=== PATIENT | female | born 1960 | race Caucasian/White ===

== ENCOUNTER 2024-01-21 09:25 | Inpatient (IN) | payer BC, SELFPAY ==
[2024-01-21] VITALS (23 sets, daily range): BP systolic 93–172; BP diastolic 45–79; PULSE 50–98; RESP 12–22; TEMP 36.7–37.2; O2SAT 91–98; BMI 27.4; BMI 171.4; BMI 26.9
--- NOTE | 2024-01-21 09:23 | ECG_ITS ---
APPROVED REPORT Exam: Resting ECG HR:67 bpm ECG Measurements Heart Rate 67 AXES MD 117 P 24 QRSd 90 QRS 77 QT 393 T [address] elevation FL that appears to be involving RCA proximally and potentially LAD with elevations in V3 through V6 as well as 2, 3, aVF. Reciprocal depressions in V2, 1, aVL Electronically signed by : ALANIS CAAL, 01/21/2024 13:34:39
--- NOTE | 2024-01-21 09:27 | IR_ITS ---
APPROVED REPORT Patient Location: Emergent PROCEDURES Selective coronary angiogram Mechanical thrombectomy to the dominant right coronary artery Drug-eluting stent deployment to the proximal mid and distal dominant right coronary in a contiguous manner INDICATION Acute inferior lateral ST elevation myocardial infarction, Coronary artery disease Informed consent was obtained prior to the procedure. COMPLICATIONS NONE Estimated Blood Loss: LESS THAN 10 ML TECHNIQUE One percent lidocaine used to anesthetize the right anterior aspect of the wrist. The right radial artery was accessed via the Seldinger technique. A 6 Citizen [place] sheath was placed in the right radial artery. 2.5 mg of Verapamil, 800 mcg of nitroglycerin, 1mg Lidocaine and 5000 U Heparin were given through the arterial sheath. The JL 3 guide catheter was used to perform selective coronary angiogram. Therapeutic heparin had already been administered therefore a Choice PT extra-support wire was placed distally into the occluded right coronary artery. Penumbra catheter was advanced and mechanical aspiration restored EHSAN-3 flow. Guide catheter was lost therefore a 6 [place] JR4 guide catheter was placed back in the right coronary followed by Choice PT extra-support wire. A 2.5 x 12 mm noncompliant balloon was deployed at 20 wei in the mid and proximal right coronary artery. Following this a 3.5 x 38 mm [place] frontier stent was placed in the mid right coronary artery and deployed at 16 wei. An additional 3.5 x 18 mm [place] frontier stent was then placed proximal to the for stent yet still overlapping and deployed at 24 wei. The balloon was advanced and deployed at 24 wei to mesh the stents and further post dilate the calcified area. There was haziness and a stepdown distally therefore an additional 3.5 x 22 mm [place] frontier stent was placed distal to the for stent yet still overlapping and deployed at 12 wei. The balloon was brought back and deployed at 20 and then 24 wei to further post dilate. EHSAN 0 flow was present at the beginning of the procedure with EHSAN-3 flow at the end of the procedure. Following this a 6 [place] JL 3 guide catheter was used to perform left coronary artery angiography. At the end the procedure the apparatus was removed the sheath was removed and hemostasis was achieved using TR banding patient was transferred to the postop putting in stable condition ANGIOGRAPHIC RESULTS The left main artery Normal The left anterior descending artery Has proximal calcified 20% stenosis followed by a concentric calcified 70% stenosis immediately distal to the first diagonal artery. There is additional 40 and tandem 50% calcified mid vessel stenoses. There is an additional 40 to 50% calcified stenosis at the proximal portion of the distal LAD The circumflex artery Is nondominant and has proximal eccentric calcified 70% stenosis followed by 50% stenosis The right coronary artery Is dominant and initially proximally occluded. Following revascularization there is wide patency of the proximal mid and distal segment within 3 contiguous drug-eluting stents. Distally there is excellent transitioning with wide patency of the PDA and posterolateral branch The LUND ventriculogram reveals Not performed The left ventricular end-diastolic pressure Not measured IMPRESSION Acute inferolateral ST elevation myocardial infarction involving the proximal dominant right coronary Successful mechanical thrombectomy of the proximal right coronary artery 100% occlusion reduced to 0% with 3 contiguous drug-eluting stents as described above Persistent severe and moderate disease in the mid LAD as described above Persistent severe stenosis in the proximal circumflex artery as described above PLAN 1. Brilinta 90 twice daily plus aspirin 81 mg daily 2. LDL less than 55 to achieve that high intensity statin 3. Add YULISA inhibitor's and beta-blockers as hemodynamically tolerated 4. Formal echocardiogram 5. A minimum of 48 hours of continuous telemetry and supportive care 6. Cardiac rehabilitation 7. Avoidance of tobacco products 8. Patient will be brought back to the [employer] 9 12 Tutor in 4 to 6 weeks and will undergo revascularization of the LAD and circumflex artery Electronically signed by : Alpesh Townsend MD 01/21/2024 10:40:30
--- NOTE | 2024-01-21 09:31 | ED_ITS ---
Discharge Plan Disposition Patient Disposition: Admitted Condition: Fair Prescriptions Prescriptions: No Action atorvastatin 20 mg tablet 20 mg PO HS Patient Comments: TAKE 1 TABLET BY MOUTH EVERY NIGHT lisinopril-hydrochlorothiazide 20-12.5 mg tablet 1 tab PO DAILY Patient Comments: TAKE 1 TABLET BY MOUTH EVERY MORNING amlodipine 2.5 mg tablet 2.5 mg PO DAILY Patient Comments: TAKE 1 TABLET BY MOUTH EVERY DAY Referrals Follow up/Referrals: Provider,Referral, [Primary Care Provider] - See instructions Clinical Impressions Clinical Impression: ST elevation DC (STEMI) Print Language Print Language: Fijian Discharge ED Provider: Darrin Luna General Chief Complaint: Chest Pain Stated Complaint: chest pain Time Seen by Provider: 01/21/24 09:27 History of Present Illness HPI narrative: Please note that above description of symptoms, in this electronic medical record under categorization of recalled from ER triage doctor by RN are reflective of an initial nursing assessment, however, is not reflective of my full history and physical exam that was personally taken and clarified. Consequentially, this preceding description of symptoms, which may include the patient's categorized chief complaint in the EMR, do not reflect my personal clinical impression, and the ultimate description of history of present illness and patient stated complaints should be deferred to this section of the note. Unless stated otherwise or congruent with this section of the note, additional signs, symptoms, or incongruence should be interpreted as inaccurate with my clinical impression. Related Data Home Medications ?Medication ?Instructions ?Recorded ?Confirmed amlodipine 2.5 mg tablet 2.5 mg PO DAILY 01/21/24 01/21/24 atorvastatin 20 mg tablet 20 mg PO HS 01/21/24 01/21/24 lisinopril 20 1 tab PO DAILY 01/21/24 01/21/24 mg-hydrochlorothiazide 12.5 mg tablet Allergies Allergy/AdvReac Type Severity Reaction Status Date / Time No Known Allergies Allergy Verified 01/21/24 09:30 [facility] Disclaimer: The information contained in this section may have been updated after the patient was seen, as this information can be updated by other users. Social History (Updated 01/21/24 @ 10:01 by Darrin Luna MD) Smoking Status: Unknown if ever smoked alcohol intake: never current occupational status: employed Travel in the last 8 weeks: None ROS Obtained: Yes All systems reviewed & no additional complaints except as documented Physical Exam General General appearance: alert and in distress (Mild distress secondary to pain) Neck Neck exam: Present trachea midline Chest Chest inspection: Present normal inspection and symmetric chest wall rise Respiratory Respiratory exam: Present normal lung sounds bilaterally; Absent respiratory distress, wheezes, stridor, accessory muscle use or prolonged expiratory phase Cardiovascular Cardiovascular exam: Present regular rate, normal rhythm and other (Pulses equal and symmetric in upper and lower extremities) Extremities Exam Extremities exam: Absent edema Neurological Exam Neurological exam: Present alert, oriented X3 and CN II-XII intact Skin Skin exam: Present warm and dry; Absent cyanosis, diaphoresis or pallor HEART Score HEART Score HEART Score assessment performed?: Yes HEART Score: 7 Critical Care Critical Care Time Critical Care Time: Yes (cards) Attestation: On 01/21/24, the high probability of a clinically significant, sudden or life threatening deterioration of the following system(s) required my full and direct attention, intervention and personal management. The time I documented below is in addition to time spent performing reported procedures but includes the following listed in this critical care notation. Total Time Total Critical Care Time: 45 Medical Decision Making Medical Records Medical records reviewed: Yes I reviewed the patient's medical records. Derek Inquiry Pt receiving controlled substance: No Derek was queried for this patient: No Vital Signs Vital Signs: 01/21/24 09:25 01/21/24 09:35 Temperature 98.0 F 98.0 F Temperature Source Oral Pulse Rate 69 Pulse Rate [Left Radial] 69 Respiratory Rate 12 14 Blood Pressure 172/71 H Blood Pressure [Right Arm] 172/71 H Blood Pressure Mean [Right Arm] 104 02 Sat by Pulse Oximetry 98 Oxygen Delivery Method Room Air Room Air Lab Data Labs: Lab Results 01/21/24 09:27: WBC 12.0 H, RBC 5.70 H, Hgb 16.9 H, Hct 52.3 H, MCV 91.8, MCH 29.6, MCHC 32.3, RDW 13.6, Plt Count 236, MPV 9.3, Neut % (Auto) 69.6, Lymph % (Auto) 23.8, Hart % (Auto) 4.2, Eos % (Auto) 1.9, Baso % (Auto) 0.5, Neut # (Auto) 8.4 H, Lymph # (Auto) 2.9, Hart # (Auto) 0.5, Eos # (Auto) 0.2, Baso # (Auto) 0.1, PT 10.3, INR 0.91, APTT 28.5 L, Sodium 139, Potassium 3.7, Chloride 103, Carbon Dioxide 29, Anion Gap 10.7, BUN 12, Creatinine 0.80, Estimated Creat Clear 65, Estimated GFR 73, Est GFR ( Amer) 88, Glucose 150 H, Calcium 10.1, Total Bilirubin 0.6, AST 31, ALT 19, Alkaline Phosphatase 89, Troponin I 0.06 H, NT-Pro-B Natriuret Pep 174 H, Total Protein 7.8, Albumin 4.6, Globulin 3.2, Albumin/Globulin Ratio 1.4, Triglycerides 118, Cholesterol 207 H, LDL Cholesterol Direct 112.12, VLDL Cholesterol 24, HDL Cholesterol 61 H, Cholesterol/HDL Ratio 3.4 01/21/24 09:27 01/21/24 09:27 Response Orders (Tests/Meds): ED MEDICATIONS Generic Name Dose Route Start Last Admin Trade Name Freq PRN Reason Stop Dose Admin Atropine Sulfate 0.5 mg 01/21/24 10:08 01/21/24 10:09 Atropine 1mg/10ml Syringe (Crash Cart) IV 01/21/24 10:09 1 mg ONCE ONE Administration Fentanyl Citrate 50 mcg 01/21/24 09:30 Fentanyl 100mcg/2ml Vial IV 01/21/24 21:30 Q3MINP PRN Sedation Fentanyl Citrate 25 mcg 01/21/24 09:30 Fentanyl 100mcg/2ml Vial IV 01/21/24 21:30 Q3MINP PRN Sedation Flumazenil 0.2 mg 01/21/24 09:30 Flumazenil 0.1mg/Ml 5ml Vial IV 01/21/24 21:30 NEEDED PRN Sedation Heparin Sodium (Porcine) 10,000 unit 01/21/24 09:30 01/21/24 09:44 Heparin 1,000 Units/Ml 10ml Vial (Psychiatric Registered Nurse) IV 01/21/24 13:30 2,000 unit NEEDED PRN Administration Emergency Box Dock Manager Hydralazine HCl 20 mg 01/21/24 09:30 Hydralazine 20mg/Ml Vial IV 01/21/24 13:30 ONCE PRN sbp>160 Sodium Chloride 1,000 mls @ 25 mls/hr 01/21/24 09:30 Sod Chlor 0.9% 1000ml Bag IV 02/20/24 09:29 .Q25H LUMA Adenosine 180 mg/ Sodium 90 mls @ 379.658 mls/hr 01/21/24 09:30 Chloride IV 01/21/24 13:30 ONCE PRN fractional flow reserve 180 MCG/KG/MIN Adenosine 90 mg/ Sodium 90 mls @ 759.316 mls/hr 01/21/24 09:30 Chloride IV 01/21/24 13:30 ONCE PRN fractional flow reserve 180 MCG/KG/MIN Sodium Chloride 1,000 mls @ 25 mls/hr 01/21/24 09:30 01/21/24 09:44 Sod Chloride 0.9% 500ml Bag IV 01/22/24 09:30 25 mls/hr .Q25H LUMA Administration Labetalol HCl 20 mg 01/21/24 09:30 Labetalol 20mg/4ml Syringe IV 01/21/24 13:30 ONCE PRN sbp>160 Midazolam HCl 1 mg 01/21/24 09:30 Midazolam 2mg/2ml Vial IV 01/21/24 21:30 Q3MINP PRN Sedation Midazolam HCl 1 mg 01/21/24 09:30 Midazolam Hcl 1mg/Ml 5ml Vial IV 01/21/24 21:30 Q3MINP PRN Sedation Miscellaneous 1 each 01/21/24 09:30 Heparin Drip Consult NOTAPPLIC 02/20/24 09:29 CONSULT PHARMACY [facility] Naloxone HCl 0.4 mg 01/21/24 09:30 Naloxone 0.4mg/Ml Vial IV 01/21/24 21:30 Q5MINP PRN Decreased Respirations Nitroglycerin 800 mcg 01/21/24 09:30 01/21/24 09:43 Nitroglycerin 800mcg/8ml Syr (Psychiatric Registered Nurse) IA 01/21/24 13:30 800 mcg NEEDED PRN Administration Emergency Box Dock Manager Protamine Sulfate 50 mg 01/21/24 09:30 Protamine Sulfate 50mg/5ml Vial (Psychiatric Registered Nurse) IV 01/21/24 13:30 ONCE PRN act>200 Sodium Chloride 10 ml 01/21/24 09:27 Sodium Chloride 0.9% 10ml Flush Syringe IV 02/20/24 09:26 NEEDED PRN Maintain IV Site Discontinued Medications Generic Name Dose Route Start Last Admin Trade Name Freq PRN Reason Stop Dose Admin Aspirin 324 mg 01/21/24 09:27 01/21/24 09:33 Aspirin 81mg Chewable Tablet PO 01/21/24 09:28 324 mg ONCE ONE Administration Clopidogrel Bisulfate 600 mg 01/21/24 09:27 01/21/24 09:57 Clopidogrel 300mg Tablet PO 01/21/24 09:28 Not Given ONCE ONE Diphenhydramine HCl 50 mg 01/21/24 09:30 01/21/24 09:45 Diphenhydramine 50mg/Ml Vial IV 01/21/24 09:31 50 mg ONCE ONE Administration Heparin Sodium (Porcine) 5,000 unit 01/21/24 09:27 01/21/24 09:33 Heparin Sodium 5,000 Unit/Ml Vial IV 01/21/24 09:28 5,000 unit ONCE ONE Administration Heparin Sodium/Sodium Chloride 3,000 unit 01/21/24 09:30 01/21/24 09:44 Heparin 1,000 Units/500ml Ns (Psychiatric Registered Nurse) IV 01/21/24 09:31 3,000 unit ONCE ONE Administration Lidocaine HCl 20 ml 01/21/24 09:30 01/21/24 09:44 Lidocaine 1% 10ml Mdv IJ 01/21/24 09:31 10 ml ONCE ONE Administration Lidocaine HCl 20 ml 01/21/24 09:30 Lidocaine 1% 5ml Pf Vial IJ 01/21/24 09:31 ONCE ONE Ondansetron HCl 4 mg 01/21/24 09:27 Ondansetron 4mg/2ml Vial IV 01/21/24 09:28 ONCE ONE Ticagrelor 180 mg 01/21/24 09:46 01/21/24 09:46 Ticagrelor 90mg Tablet PO 01/21/24 09:47 180 mg ONCE ONE Administration Verapamil HCl 2.5 mg 01/21/24 09:30 01/21/24 09:43 Verapamil 2.5mg/Ml 2ml Vial IV 01/21/24 09:31 2.5 mg ONCE ONE Administration ORDERS Category Date Time Status Consult to Cardiology [CONS] Stat Cons 01/21/24 09:27 Active XR chest portable Stat Exams 01/21/24 09:27 Ordered Complete Blood Count Auto Diff Stat Lab 01/21/24 09:27 Completed Comprehensive Metabolic Panel Stat Lab 01/21/24 09:27 Completed HIV (1&2) Antibody Rapid Stat Lab 01/21/24 09:27 Received Hep C Ab with Reflex to RNA Stat Lab 01/21/24 09: Received Lipid Panel Stat Lab 01/21/24 09:27 Completed NT Pro Brain Natriuretic Pep. Stat Lab 01/21/24 09:27 Completed PTT Heparin (inpatient only) Stat Lab 01/21/24 09:27 Completed Prothrombin Time INR Stat Lab 01/21/24 09:27 Completed Troponin I Q3H Lab 01/21/24 12:30 Ordered Troponin I Q3H Lab 01/21/24 15:30 Ordered Troponin I Stat Lab 01/21/24 09:27 Completed MDM Narrative Medical Decision Narrative: 63-year-old female history of hypertension presenting with chest pain. Chest pain started about 4 days prior to this, was on and off. Today, it has been constant, bothering her enough that she came in for further evaluation. Denies shortness of breath, nausea, vomiting, diaphoresis, syncope, or any other concerns. States that it is intermittently radiating to her back. History was obtained via conversation with patient. On arrival, patient hemodynamically stable, alert, oriented x4, appropriate, GCS 15, moving all extremities spontaneously, pupils equal and reactive to light. Full physical exam performed and significant for appears to be in mild distress secondary to pain. Cardiac exam without murmurs gallops or rubs. Pulses equal and symmetric in upper and lower extremities without delay. Lungs are clear to auscultation. Neurologically intact and ambulatory. Differential includes STEMI, dissection, pericarditis/myocarditis, among other Patient was given 324 mg aspirin, 600 mg Plavix, 5000 units heparin bolus, heparin drip ordered for symptomatic management and correction of underlying abnormalities. Patient placed on continuous cardiac monitoring and continuous pulse ox with initial blood pressure 172/71, heart rate 69, saturation 98% on room air. Independent interpretation of EKG shows ST elevations V3 through V6 as well as 2, 3, aVF with depressions and T wave inversions in V2, 1, aVL. Sinus rhythm 67 bpm. VA 170, QRS 90. Cardiology contacted and case was discussed, meds were administered, patient to be taken to Psychiatric Registered Nurse. Workup independently interpreted and significant for mild leukocytosis 12 with neutrophilia. Coags normal. Chemistry nonactionable. Hyperlipidemia on lipid panel. Chest x-ray ordered but pending. Troponin 0.06. Because patient high risk for clinical decompensation, deemed appropriate for inpatient admission. Results were relayed to patient who voiced understanding and patient was agreeable to inpatient admission and management. Patient was admitted to the hospital for further definitive management. Market Asset Protection Manager disclaimer Much of this encounter note is an electronic news broadcaster spoken language to printed text. Electronic news broadcaster of the spoken language may permit errors. Although I have reviewed the note, some errors may still exist.
[2024-01-21] MEDS: ASPIRIN 81MG CHEWABLE TABLET 324 MG PO (09:33)
[2024-01-21] MEDS: HEPARIN SODIUM 5,000 UNIT/ML VIAL 5000 UNIT IV (09:33)
--- NOTE | 2024-01-21 09:33 | PC.NURSE ---
pt to cardiac catheterization technician
[2024-01-21 09:37] LABS: Basophils # 0.1 K/mm3 (0-0.2); Basophils % 0.5 % (0.1-2.0); Eosinophils # 0.2 K/mm3 (0.0-0.4); Eosinophils % 1.9 % (0.1-12.0); Hematocrit 52.3 % (37.0-47.0); Hemoglobin 16.9 g/dL (12.2-16.2); Lymphocytes # 2.9 K/mm3 (0.7-4.5); Lymphocytes % 23.8 % (10-50); Mean Corpuscular HGB Conc 32.3 g/dL (31.8-35.4); Mean Corpuscular Hemoglobin 29.6 pg (27.0-31.2); Mean Corpuscular Volume 91.8 fl (81-99); Mean Platelet Volume 9.3 fl (7.4-10.4); Monocytes # 0.5 K/mm3 (0.1-1.0); Monocytes % 4.2 % (1.7-9.3); Neutrophils # 8.4 K/mm3 (1.8-7.8); Neutrophils % 69.6 % (37.0-80.0); Platelet Count 236 K/mm3 (142-424); Red Cell Distribution Width 13.6 % (11.5-17.5)
--- NOTE | 2024-01-21 09:40 | PC.NURSE ---
pt presented to ED with c/o chest pain. pt sat on stretcher, ekg stickers placed, ekg performed. upon EKG interpretation STEMI notified. STEMI ALERT 0925 zoll pads placed on pt, pt placed in gown, elyssa and wrist shaved, gown placed on pt, consent obtained. pt belongings placed in bag. maude cool at bedside gathering pts daughter information to inform pts daughter of POC.
[2024-01-21] MEDS: NITROGLYCERIN 800MCG/8ML SYR (CATH LAB) 800 MCG IA (09:43)
[2024-01-21] MEDS: VERAPAMIL 2.5MG/ML 2ML VIAL 2.5 MG IV (09:43)
[2024-01-21 09:44] LABS: Albumin Level 4.6 g/dl (3.5-5.0); Chloride 103 mmol/L (98-107)
[2024-01-21] MEDS: LIDOCAINE 1% 10ML MDV 20 ML IJ (09:44)
[2024-01-21] MEDS: HEPARIN 1,000 UNITS/500ML NS (CATH LAB) 3000 UNIT IV (09:44)
[2024-01-21] MEDS: 0.9 % SODIUM CHLORIDE 500 ML 25 ML IV (09:44)
[2024-01-21] MEDS: HEPARIN 1,000 UNITS/ML 10ML VIAL (CATH LAB) 10000 UNIT IV (09:44)
[2024-01-21 09:45] LABS: Potassium 3.7 mmoL/L (3.5-5.1); Sodium 139 mmol/L (136-145)
[2024-01-21] MEDS: diphenhydrAMINE 50MG/ML VIAL 50 MG IV (09:45)
[2024-01-21] MEDS: TICAGRELOR 90MG TABLET 180 MG PO (09:46)
--- NOTE | 2024-01-21 09:46 | HMH.PHAINT1 ---
Pharmacy Intervention Comments: MEDICATION RECONCILIATION COMPLETED ON PATIENT USING EXTERNAL FILL HISTORY FROM PHARMACY. -MICKIE HINES, DILMAD
[2024-01-21 09:47] LABS: Alanine Aminotransferase 19 U/L (12-78); Aspartate Amino Transferase 31 U/L (14-36); Blood Urea Nitrogen 12 mg/dl (7-17); Creatinine Clearance Estimated 65 mL/min (50-200); Estimated Glomerular Filt Rate 73 ml/min (>60); GFR (African American) 88 ML/MIN (>60)
[2024-01-21 09:48] LABS: Albumin/Globulin Ratio 1.4 (1.1-1.8); Alkaline Phosphatase 89 U/L (38-126); Anion Gap 10.7 mEq/L (5-15); Bilirubin,Total 0.6 mg/dl (0.2-1.3); Calcium 10.1 mg/dl (8.4-10.2); Carbon Dioxide 29 mmol/L (22.0-30.0); Chol/HDL Ratio 3.4 (1-3.5); Cholesterol 207 mg/dl (140-200); Globulin 3.2 g/dL (1.3-3.2); Glucose 150 mg/dl (74-100); HDL Cholesterol 61 mg/dl (40-60); INR 0.91 (0.9-1.1); Prothrombin Time 10.3 seconds (10.1-12.5); Total Protein,Serum 7.8 g/dl (6.3-8.2); Triglycerides 118 mg/dl (30-150); VLDL Cholesterol 24 mg/dL (0-40)
--- NOTE | 2024-01-21 09:55 | HMH.ITSTN ---
patient taken to laborer brush clearing prior to cxr being taken
[2024-01-21 09:59] LABS: Direct LDL Cholesterol 112.12 mg/dL (100-129); PTT Heparin (inpatient only) 28.5 Seconds (50-75)
[2024-01-21 10:00] LABS: NT Pro Brain Natriuretic Pep. 174 pg/mL (0-125)
[2024-01-21 10:02] LABS: Troponin I 0.06 ng/ml (0.00-0.034)
[2024-01-21] MEDS: ATROPINE 1MG/10ML SYRINGE (CRASH CART) 0.5 MG IV (10:09)
[2024-01-21] MEDS: MIDAZOLAM HCL 1MG/ML 5ML VIAL 1 MG IV (10:17)
[2024-01-21] MEDS: FENTANYL 100MCG/2ML VIAL 50 MCG IV (10:18)
[2024-01-21] MEDS: ONDANSETRON 4MG/2ML VIAL 4 MG IV (10:23)
[2024-01-21] MEDS: IOPAMIDOL-370 (76%);100ML BOTTLE 100 ML IV (10:52)
--- NOTE | 2024-01-21 11:23 | SUR.PHASEII ---
report given to car montoya
--- NOTE | 2024-01-21 12:14 | CA_ITS ---
APPROVED REPORT EXAM: Comprehensive 2D, Doppler, and color-flow Echocardiogram Fire Control Mechanic: Bonnie Hong CRT Ht: 5 ft 3 in Wt: 152lbs BSA: 1.72 BP: 125/71 mmHg Indications: Thrombectomy, stent, STEMI, HTN, HLD, SMOKER, SOB 2D Dimensions LA Volume 42.30 mL LA Volume Index 24.651180 mL/m2 (M/F) 16-34 M-Mode Dimensions RVDd 2.09 cm (0.9-2.6) LA Diam 3.53 cm (1.9-4.0) LVDd 4.15 cm (3.5-5.7) LVDs 2.97 cm (3.5-5.7) IVSd 1.09 cm (0.6-1.1) PWd 0.94 cm (0.6-1.1) EF (Teich) 55.20% FS 28.40% EDV (Teich) 76.40 mL TAPSE 2.30 (<1.7) ESV (Teich) 34.20 mL LV Diastology E Decel Time 173 (160-240 msec) E/A Ratio 0.86 MED A' 14.00 cm/s LAT A' 12.20 cm/s Aortic Valve KIMBERLY Index 1.10 cm2/m2 AoV Peak Kamlesh. 170.0 (50-130 cm/s) AI PHT 555.00 ms AO Peak GR. 11.60 mmHg AO Mean GR. 6.30 (<5 mmHg) AO VTI 30.9 (18-25 cm) KIMBERLY (VTI) 1.93 (2.5-4.5 cm2) Mitral Valve MV E Max Kamlesh. 91.0 (40-130 cm/s) MV A Velocity 106.0 (40-130 cm/s) E/A Ratio 0.86 MV PHT 51.0 ms Pulmonary Valve PV Peak Velocity 85.0 (50-150 cm/s) Tricuspid Valve TR P. Velocity 210.00 cm/s RAP Estimate 10.00 mmHg RVSP 27.70 mmHg Left Ventricle The left ventricle is normal size. The left ventricular systolic function is normal. The left ventricular ejection fraction is within the normal range. There is increased LV wall thickness. There is normal LV segmental wall motion. Transmitral Doppler flow pattern suggests impaired LV relaxation. LVEF is 60%. Right Ventricle Right ventricle is mild to moderately dilated. The right ventricular systolic function is normal. Atria Left atrium is moderately dilated. Right atrium is moderately dilated. There is no Doppler evidence of interatrial shunt. Aortic Valve The aortic valve is mildly thickened. There is no hemodynamically significant aortic stenosis. Trace aortic regurgitation. Mitral Valve The mitral valve is mildly thickened. No evidence of mitral valve stenosis. Trace mitral regurgitation. Tricuspid Valve The tricuspid valve leaflets are thin and pliable. Trace tricuspid regurgitation. RVSP is 20???25 mmHg. Pulmonic Valve The pulmonary valve is normal in structure. Trace pulmonic regurgitation. Great Vessels The aortic root is normal in size. The ascending aorta is not well-visualized. IVC is normal in size and collapses >50% with inspiration. Pericardium There is no pericardial effusion. Other Information Study Quality: Technically Difficult Conclusion Technically difficult study due to poor acoustic windows. Normal biventricular systolic function. Mild to moderate RV dilation. Biatrial dilation. No significant valvular stenosis or regurgitation. Electronically signed by : Sharron Allen MD 01/22/2024 11:59:45
--- NOTE | 2024-01-21 12:15 | XR_ITS ---
PROCEDURE INFORMATION: Exam: XR Chest Exam date and time: 01/21/2024 12:48 PM Age: 63 years old Clinical indication: Other: Copd, chf; Additional info: Chf, copd TECHNIQUE: Imaging protocol: Radiologic exam of the chest. Views: 1 view. COMPARISON: No relevant prior studies available. FINDINGS: Lungs: Lungs are well aerated without a focal area of consolidation. Pleural spaces: Unremarkable. No pleural effusion. No pneumothorax. Heart/Mediastinum: Unremarkable. No cardiomegaly. Bones/joints: Unremarkable. IMPRESSION: Lungs are well aerated without a focal area of consolidation.
--- NOTE | 2024-01-21 12:24 | P.CONCA_ITS ---
History of Present Illness History of Present Illness Consult date: 01/21/24 Requesting physician: Carlos Thomas Consult reason: chest pain Chief complaint: STEMI History of present illness: 63-year-old white female without known prior cardiovascular disease presented to the emergency room for complaint of chest pain. Patient states she had a mild gradual onset of left-sided chest heaviness which began Saturday and occurred intermittently over the next couple of days. This morning she woke up and felt the pain was getting worse and now radiating to her jaws. On arrival to the emergency room she was noted to have ST elevation inferior leads, code STEMI was called and patient was taken emergently to the [facility] where she had successful thrombectomy and stenting of her RCA. LAD and left circumflex both of 70% stenosis left for staged intervention at a later time. I am seeing patient on the floor post cath and she reports no symptoms and she is alert and feeling well. Family is bedside. [facility] Disclaimer: The information contained in this section may have been updated after the patient was seen, as this information can be updated by other users. Medical History (Updated 01/21/24 @ 12:26 by KEVEN Floyd) HLD (hyperlipidemia) Surgical History S/P cardiac cath H/O tubal ligation Social History Smoking Status: Current every day smoker alcohol intake: never current occupational status: employed Travel in the last 8 weeks: None Review of Systems Constitutional Constitutional: Denies fatigue and Denies weakness Eyes Eyes: Denies loss of vision ENT Ears, Nose, Mouth, and Throat: Denies hearing loss and Denies vertigo *Cardiovascular Cardiovascular: Denies chest pain, Denies dyspnea and Denies syncope *Respiratory Respiratory: Denies cough and Denies dyspnea *Gastrointestinal Gastrointestinal: Denies change in stool character, Denies nausea and Denies vomiting *Musculoskeletal Musculoskeletal: Denies muscle weakness Integumentary/Breasts Skin/Breast: Denies changing lesions *Neurologic Neurologic: Denies loss of vision, Denies syncope, Denies vertigo and Denies weakness Endocrine Endocrine: Denies fatigue Exam Data for Last 24 hours Vital signs and Labs for Last 24 Hours: Temp Pulse Resp BP Pulse Ox O2 Del Method 98.0 F 84 16 125/71 93 L Room Air 01/21/24 09:35 01/21/24 11:15 01/21/24 11:15 01/21/24 11:15 01/21/24 11:15 01/21/24 11:38 Laboratory Results - last 24 hr 01/21/24 09:27: WBC 12.0 H, RBC 5.70 H, Hgb 16.9 H, Hct 52.3 H, MCV 91.8, MCH 29.6, MCHC 32.3, RDW 13.6, Plt Count 236, MPV 9.3, Neut % (Auto) 69.6, Lymph % (Auto) 23.8, [place] % (Auto) 4.2, Eos % (Auto) 1.9, Baso % (Auto) 0.5, Neut # (Auto) 8.4 H, Lymph # (Auto) 2.9, [place] # (Auto) 0.5, Eos # (Auto) 0.2, Baso # (Auto) 0.1, PT 10.3, INR 0.91, APTT 28.5 L, Sodium 139, Potassium 3.7, Chloride 103, Carbon Dioxide 29, Anion Gap 10.7, BUN 12, Creatinine 0.80, Estimated Creat Clear 65, Estimated GFR 73, Est GFR ( Amer) 88, Glucose 150 H, Calcium 10.1, Total Bilirubin 0.6, AST 31, ALT 19, Alkaline Phosphatase 89, Troponin I 0.06 H, NT-Pro-B Natriuret Pep 174 H, Total Protein 7.8, Albumin 4.6, Globulin 3.2, Albumin/Globulin Ratio 1.4, Triglycerides 118, Cholesterol 207 H, LDL Cholesterol Direct 112.12, VLDL Cholesterol 24, HDL Cholesterol 61 H, Cholesterol/HDL Ratio 3.4 I & O for Last 24 hours: Intake & Output 01/18/24 01/19/24 01/20/24 01/21/24 23:59 23:59 23:59 23:59 Weight 152 lb Constitutional Constitutional: no acute distress and cooperative *Routine HEENT Exam Eye: Present PERRL *Routine Respiratory Exam Respiratory: Present CTA bilaterally; Absent accessory muscle use, wheezes or crackles *Routine Cardiovascular Exam Cardiovascular: Present RRR, Normal S1 and Normal S2; Absent murmur, gallop or rubs *Routine Abdominal Exam Abdominal: Present soft; Absent tenderness *Routine Extremities Exam Extremities: Present pulses intact; Absent cyanosis or edema *Routine Skin Exam Skin: Present intact; Absent erythema or wounds *Routine Neurological Exam Neurological: Present alert and oriented X3 Routine Psychiatric Exam Psychiatric: Present cooperative Meds Home Medications and Allergies Home Medications ?Medication ?Instructions ?Recorded ?Confirmed ?Type amlodipine 2.5 mg tablet 2.5 mg PO DAILY 01/21/24 01/21/24 History atorvastatin 20 mg tablet 20 mg PO HS 01/21/24 01/21/24 History lisinopril 20 1 tab PO DAILY 01/21/24 01/21/24 History mg-hydrochlorothiazide 12.5 mg tablet New Prescriptions to Start Prescriptions: Allergies Allergy/AdvReac Type Severity Reaction Status Date / Time No Known Allergies Allergy Verified 01/21/24 09:30 Assessment and Plan *Assessment and plan (1) STEMI (ST elevation myocardial infarction): Status: Acute Category: Medical Code(s): I21.3 - ST elevation (STEMI) myocardial infarction of unspecified site (2) CAD (coronary artery disease): Status: Acute Category: Medical Code(s): I25.10 - Atherosclerotic heart disease of [place] coronary artery without angina pectoris (3) Hypertension: Status: Acute Category: Medical Code(s): I10 - Essential (primary) hypertension Plan Multivessel CAD status post IW-STEMI - new dx this admission - [facility]: thrombectomy stenting of RCA, LAD/LCX 70% and will have staged intervention in approximately 2 weeks - pt will be started on DAPT, BB, Statin - 2D ECHO for LV function - 48 observation post STEMI Htn - stable currently - start BB, ARB HLD - check lipid panel - start high dose statin Tob - advise cessation
[2024-01-21] MEDS: IRBESARTAN 75MG TABLET 75 MG PO (14:09)
[2024-01-21] MEDS: METOPROLOL SUCCINATE XL 25MG TABLET 25 MG PO (14:09)
[2024-01-21 14:33] LABS: CATHL Activated Clotting Time 272 SEC (74-125)
[2024-01-21 14:35] LABS: CATHL Activated Clotting Time 296 SEC (74-125)
--- NOTE | 2024-01-21 16:27 | PC.NURSE ---
1627- 12 beat run of v tach on monitor. Patient asymptomatic, vs stable. Hospitalist aware, ordered potassium po and check magnesium level. Cardiology aware, no new orders.
[2024-01-21 16:35] LABS: HIV (1&2) Antibody Rapid NONREACTIVE (NONREACTIVE)
[2024-01-21] MEDS: POTASSIUM CHLORIDE 20MEQ TAB 40 MEQ PO (16:47)
[2024-01-21 16:57] LABS: Magnesium 1.7 mg/dl (1.6-2.3)
[2024-01-21] MEDS: MAGNESIUM SULFATE IN WATER 2 GM/50 ML PIGGYBACK IV ×2 (17:53→18:51)
--- NOTE | 2024-01-21 18:19 | P.HP_ITS ---
History of Present Illness *Admission Date: 01/21/24 *Reason for visit:: Chest pain, STEMI *History of present illness: Ilana Allen is a 63-year-old female with a medical history significant for chronic tobacco use, hypertension who presented with worsening chest pain and found to have a STEMI. Patient states she had a mild gradual onset of left- sided chest heaviness which began Saturday and occurred intermittently over the next couple of days. This morning she woke up and felt the pain was getting worse with radiation to her jaws. On arrival to the emergency room she was noted to have ST elevation inferior leads, code STEMI was called and patient was taken emergently to the [facility] where she had successful thrombectomy and stenting of her RCA. LAD and left circumflex both of 70% stenosis left for staged intervention at a later time. Upon my arrival postcatheterization, lita johns was lying in bed comfortably this afternoon without chest pain, shortness of breath. She states she is open to quitting smoking, but will think about it more. Open to nicotine patches. [facility] Disclaimer: The information contained in this section may have been updated after the patient was seen, as this information can be updated by other users. Medical History (Updated 01/21/24 @ 12:26 by KEVEN Floyd) HLD (hyperlipidemia) Surgical History S/P cardiac cath H/O tubal ligation Social History Smoking Status: Current every day smoker alcohol intake: never current occupational status: employed Travel in the last 8 weeks: None Other Medical History Have you received the Flu Vaccine for this season: No Have you received the Pneumonia Vaccine: No Review of Systems Constitutional Constitutional: Denies weakness Eyes Eyes: Denies loss of vision ENT Ears, Nose, Mouth, and Throat: Denies vertigo *Cardiovascular Cardiovascular: Denies syncope *Neurologic Neurologic: Denies loss of vision, Denies syncope, Denies vertigo and Denies weakness Meds Home Medications and Allergies Home Medications ?Medication ?Instructions ?Recorded ?Confirmed ?Type amlodipine 2.5 mg tablet 2.5 mg PO DAILY 01/21/24 01/21/24 History atorvastatin 20 mg tablet 20 mg PO HS 01/21/24 01/21/24 History lisinopril 20 1 tab PO DAILY 01/21/24 01/21/24 History mg-hydrochlorothiazide 12.5 mg tablet New Prescriptions to Start Prescriptions: Allergies Allergy/AdvReac Type Severity Reaction Status Date / Time No Known Allergies Allergy Verified 01/21/24 09:30 Exam Data for Last 24 hours Vital signs and Labs for Last 24 Hours: Temp Pulse Resp BP Pulse Ox O2 Del Method 98.0 F 71 18 143/63 H 95 Room Air 01/21/24 09:35 01/21/24 16:45 01/21/24 16:45 01/21/24 16:45 01/21/24 16:45 01/21/24 17:00 Laboratory Results - last 24 hr 01/21/24 09:27: WBC 12.0 H, RBC 5.70 H, Hgb 16.9 H, Hct 52.3 H, MCV 91.8, MCH 29.6, MCHC 32.3, RDW 13.6, Plt Count 236, MPV 9.3, Neut % (Auto) 69.6, Lymph % (Auto) 23.8, [place] % (Auto) 4.2, Eos % (Auto) 1.9, Baso % (Auto) 0.5, Neut # (Auto) 8.4 H, Lymph # (Auto) 2.9, [place] # (Auto) 0.5, Eos # (Auto) 0.2, Baso # ( Auto) 0.1, PT 10.3, INR 0.91, APTT 28.5 L, Sodium 139, Potassium 3.7, Chloride 103, Carbon Dioxide 29, Anion Gap 10.7, BUN 12, Creatinine 0.80, Estimated Creat Clear 65, Estimated GFR 73, Est GFR ( Amer) 88, Glucose 150 H, Calcium 10.1, Magnesium 1.7, Total Bilirubin 0.6, AST 31, ALT 19, Alkaline Phosphatase 89, Troponin I 0.06 H, NT-Pro-B Natriuret Pep 174 H, Total Protein 7.8, Albumin 4.6, Globulin 3.2, Albumin/Globulin Ratio 1.4, Triglycerides 118, Cholesterol 207 H, LDL Cholesterol Direct 112.12, VLDL Cholesterol 24, HDL Cholesterol 61 H, Cholesterol/HDL Ratio 3.4, HIV 1&2 Antibody Rapid Nonreactive 01/21/24 09:32: Activated Clotting Time 296 H* 01/21/24 10:04: Activated Clotting Time 272 H* I & O for Last 24 hours: Intake & Output 01/18/24 01/19/24 01/20/24 01/21/24 23:59 23:59 23:59 23:59 Output Total 0 / 0 Balance 0 / 0 Weight 68.946 kg Constitutional Constitutional: no acute distress *Routine HEENT Exam Head: Present normocephalic Eye: Present EOMI and PERRL ENT: Present mucous membranes moist *Routine Neck Exam Neck: Present supple; Absent lymphadenopathy *Routine Respiratory Exam Respiratory: Present CTA bilaterally *Routine Cardiovascular Exam Cardiovascular: Present RRR *Routine Abdominal Exam Abdominal: Present soft and normoactive bowel sounds; Absent tenderness *Routine Rectal Exam Rectal:: deferred *Routine Genitalia Exam Genitalia:: deferred *Routine Extremities Exam Extremities: Absent cyanosis, clubbing or edema *Routine Skin Exam Skin: Present warm; Absent rash *Routine Neurological Exam Neurological: Present alert and oriented X3 Assessment and Plan *Assessment and plan (1) CAD (coronary artery disease): Status: Acute Category: Medical Code(s): I25.10 - Atherosclerotic heart disease of [place] coronary artery without angina pectoris (2) STEMI (ST elevation myocardial infarction): Status: Acute Category: Medical Code(s): I21.3 - ST elevation (STEMI) myocardial infarction of unspecified site (3) Hypertension: Status: Acute Category: Medical Code(s): I10 - Essential (primary) hypertension (4) HLD (hyperlipidemia): Status: Acute Category: Medical Code(s): E78.5 - Hyperlipidemia, unspecified Plan Ilana Allen is a 63-year-old female with a medical history significant for chronic tobacco use, hypertension who presented with worsening chest pain and found to have a STEMI. Patient states she had a mild gradual onset of left- sided chest heaviness which began Saturday and occurred intermittently over the next couple of days. This morning she woke up and felt the pain was getting worse with radiation to her jaws. On arrival to the emergency room she was noted to have ST elevation inferior leads, code STEMI was called and patient was taken emergently to the [facility] where she had successful thrombectomy and stenting of her RCA. LAD and left circumflex both of 70% stenosis left for staged intervention at a later time. Upon my arrival postcatheterization, patient was lying in bed comfortably this afternoon without chest pain, shortness of breath. She states she is open to quitting smoking, but will think about it more. Open to nicotine patches. Will require 48 hours observation and cardiac telemetry post PCI for STEMI. #STEMI #CAD #Hypertension ? S/p thrombectomy of proximal RCA with 3 RADHA. Persistent severe to moderate disease of mid LAD. ? Cardiology consulted, started aspirin 81 mg and Brilinta 90 mg twice a day, atorvastatin 80 mg, metoprolol succinate 25 mg, irbesartan 75 mg. ? Will need to monitor for 48 hours after STEMI s/p PCI with stents. ? Continuous cardiac telemetry. ? Follow-up lipid panel, A1c, TSH, T4. ? Follow-up ECHO. #Nonsustained V. tach ? Observed on telemetry, about 12 beats. ? Will replete potassium, magnesium as they are respectively 3.7, 1.7. ? Followed up with cardiology, likely due to reperfusion of RCA. ? Continue to monitor on cardiac telemetry. ? Follow-up thyroid studies. ? K >4, magnesium >2. #Leukocytosis ? WBC 12.0. Likely reactive in the setting of STEMI. ? Afebrile, no tachycardia. No signs of infection. ? Continue to monitor. #Tobacco use disorder ? Counseled on smoking cessation. Patient will think about it. Open to nicotine patch. ? Nicotine patch daily. Full code DVT prophylaxis: Lovenox 40 Cardiac diet
[2024-01-21] MEDS: ATORVASTATIN 40MG TABLET 80 MG PO (19:59)
[2024-01-22] VITALS (8 sets, daily range): BP systolic 97–138; BP diastolic 46–66; PULSE 50–79; RESP 16–22; TEMP 36.4–37; O2SAT 91–96; BMI 27.1
[2024-01-22 06:58] LABS: Basophils # 0.1 K/mm3 (0-0.2); Basophils % 0.7 % (0.1-2.0); Chloride 106 mmol/L (98-107); Eosinophils # 0.2 K/mm3 (0.0-0.4); Eosinophils % 1.2 % (0.1-12.0); Hematocrit 45.5 % (37.0-47.0); Lymphocytes # 3.1 K/mm3 (0.7-4.5); Lymphocytes % 24.6 % (10-50); Mean Corpuscular HGB Conc 32.8 g/dL (31.8-35.4); Mean Corpuscular Hemoglobin 28.8 pg (27.0-31.2); Mean Corpuscular Volume 87.7 fl (81-99); Mean Platelet Volume 10.1 fl (7.4-10.4); Monocytes # 0.7 K/mm3 (0.1-1.0); Monocytes % 5.3 % (1.7-9.3); Neutrophils # 8.7 K/mm3 (1.8-7.8); Neutrophils % 68.2 % (37.0-80.0); Platelet Count 197 K/mm3 (142-424); Red Blood Count 5.18 M/mm3 (4.20-5.40); Red Cell Distribution Width 13.8 % (11.5-17.5); White Blood Count 12.8 K/mm3 (4.8-10.8)
[2024-01-22 06:59] LABS: Albumin Level 3.8 g/dl (3.5-5.0); Potassium 3.9 mmoL/L (3.5-5.1); Sodium 138 mmol/L (136-145)
[2024-01-22 07:01] LABS: Blood Urea Nitrogen 12 mg/dl (7-17); Creatinine Clearance Estimated 64 mL/min (50-200); Estimated Glomerular Filt Rate 63 ml/min (>60); GFR (African American) 77 ML/MIN (>60)
[2024-01-22 07:02] LABS: Alanine Aminotransferase 18 U/L (12-78); Albumin/Globulin Ratio 1.5 (1.1-1.8); Alkaline Phosphatase 70 U/L (38-126); Anion Gap 9.9 mEq/L (5-15); Aspartate Amino Transferase 70 U/L (14-36); Bilirubin,Total 0.5 mg/dl (0.2-1.3); Calcium 8.9 mg/dl (8.4-10.2); Carbon Dioxide 26 mmol/L (22.0-30.0); Globulin 2.6 g/dL (1.3-3.2); Glucose 110 mg/dl (74-100); Total Protein,Serum 6.4 g/dl (6.3-8.2)
[2024-01-22 07:10] LABS: Hemoglobin 14.9 g/dL (12.2-16.2)
--- NOTE | 2024-01-22 07:34 | XR_ITS ---
PROCEDURE INFORMATION: Exam: XR Chest Exam date and time: 01/22/2024 7:45 AM Age: 63 years old Clinical indication: Pain; Chest pressure; Additional info: Persistent leukocytosis TECHNIQUE: Imaging protocol: Radiologic exam of the chest. Views: 1 view. COMPARISON: CR XR CHEST PORTABLE 01/21/2024 12:48 PM FINDINGS: Tubes, catheters and devices: Monitor leads project over the chest. Lungs: No significant or acute findings. No consolidation. Pleural spaces: No significant costophrenic angle blunting. No pneumothorax. Heart/Mediastinum: Heart size is normal. Bones/joints: No acute osseous abnormality. IMPRESSION: No acute abnormality demonstrated.
[2024-01-22 07:38] LABS: Magnesium 2.3 mg/dl (1.6-2.3)
[2024-01-22 08:10] LABS: Thyroid Stimulating Hormone 2.58 uIU/mL (0.465-4.68)
[2024-01-22] MEDS: ASPIRIN EC 81MG TABLET 81 MG PO (08:21)
[2024-01-22] MEDS: NICOTINE 21MG/24HR PATCH 21 MG TD (08:22)
[2024-01-22 08:25] LABS: HCV Ab Non Reactive (Non Reactive)
[2024-01-22] MEDS: TICAGRELOR 90MG TABLET 90 MG PO ×2 (10:09→20:39)
[2024-01-22] MEDS: METOPROLOL SUCCINATE XL 25MG TABLET 25 MG PO (10:46)
--- NOTE | 2024-01-22 10:47 | ECG_ITS ---
APPROVED REPORT Exam: Resting ECG HR:53 bpm ECG Measurements Heart Rate 53 AXES AL 128 P 26 QRSd 90 QRS -23 QT 455 T -29 QTc 438 Conclusion SINUS BRADYCARDIA INFERIOR MYOCARDIAL INFARCTION , PROBABLY RECENT [40+ ms Q WAVE AND/OR ST/T ABNORMALITY IN II/aVF] ACUTE NC UNCONFIRMED REPORT Electronically signed by : Anthony Barcenas MD 01/24/2024 09:05:06
[2024-01-22 11:29] LABS: Microscopic, Urine URINE MICROSCOPIC (MICROSCOPIC)
[2024-01-22 11:49] LABS: Free T4 (Free Thyroxine) 0.88 ng/dl (0.78-2.19)
[2024-01-22 12:42] LABS: Appearance,Urine CLEAR (Clear); Bilirubin,Urine Negative (Negative); Blood, Urine Negative (Negative); Color,Urine YELLOW (Yellow); Glucose,Urine (UA) Negative (Negative); Ketones,Urine Negative (Negative); Leukocyte Esterase,Urine Negative (Negative); Nitrate,Urine Negative (Negative); Protein,Urine Negative (Negative); Urobilinogen,Urine 0.2 EU/dl (0.2)
[2024-01-22 12:55] LABS: Bacteria,Urine Trace /lpf; Squamous Epithelial Cell,Urine Occasional #/hpf (0-5)
--- NOTE | 2024-01-22 13:08 | P.PN_ITS ---
Subjective Subjective Date: 01/22/24 Time: 09:30 Interval history: Several brief runs of VT yesterday afternoon (12-13 beats). No events overnight but did require some nocturnal O2. Exam Data for Last 24 hours Vital signs and Labs for Last 24 Hours: Temp Pulse Resp BP Pulse Ox O2 Del Method O2 Flow Rate 98.6 F 52 L 17 111/50 L 91 L Room Air 2 01/22/24 12:00 01/22/24 12:00 01/22/24 12:00 01/22/24 12:00 01/22/24 12:00 01/22/24 12:53 01/22/24 06:00 Laboratory Results - last 24 hr 01/21/24 09:27: Magnesium 1.7, Hepatitis C Antibody Non reactive, HIV 1&2 Antibody Rapid Nonreactive 01/21/24 09:32: Activated Clotting Time 296 H* 01/21/24 10:04: Activated Clotting Time 272 H* 01/22/24 05:35: WBC 12.8 H, RBC 5.18, Hgb 14.9 D, Hct 45.5, MCV 87.7, MCH 28.8, MCHC 32.8, RDW 13.8, Plt Count 197, MPV 10.1, Neut % (Auto) 68.2, Lymph % (Auto) 24.6, [place] % (Auto) 5.3, Eos % (Auto) 1.2, Baso % (Auto) 0.7, Neut # (Auto) 8.7 H, Lymph # (Auto) 3.1, [place] # (Auto) 0.7, Eos # (Auto) 0.2, Baso # (Auto) 0.1, Sodium 138, Potassium 3.9, Chloride 106, Carbon Dioxide 26, Anion Gap 9.9, BUN 12, Creatinine 0.90, Estimated Creat Clear 64, Estimated GFR 63, Est GFR ( Amer) 77, Glucose 110 H D, Hemoglobin A1c 6.0, Calcium 8.9, Magnesium 2.3 D, Total Bilirubin 0.5, AST 70 H D, ALT 18, Alkaline Phosphatase 70, Total Protein 6.4, Albumin 3.8 D, Globulin 2.6, Albumin/Globulin Ratio 1.5, Procalcitonin 0.040, TSH 2.58, Free T4 0.88 01/22/24 11:20: Urine Color Yellow, Urine Appearance Clear, Urine pH 6.0, Ur Specific [place] 1.010, Urine Protein Negative, Urine Glucose (UA) Negative, Urine Ketones Negative, Urine Blood Negative, Urine Nitrate Negative, Urine Bilirubin Negative, Urine Urobilinogen 0.2, Ur Leukocyte Esterase Negative, Urine RBC None, Urine WBC None, Ur Squamous Epith Cells Occasional, Urine Bacteria Trace I & O for Last 24 hours: Intake & Output 01/19/24 01/20/24 01/21/24 01/22/24 23:59 23:59 23:59 23:59 Intake Total 360 / 960 600 / 600 Output Total 0 / 0 0 / 0 Balance 360 / 960 600 / 600 Weight 152 lb 153 lb Constitutional Constitutional: no acute distress and cooperative *Routine HEENT Exam Eye: Present PERRL *Routine Respiratory Exam Respiratory: Present CTA bilaterally; Absent accessory muscle use, wheezes or crackles *Routine Cardiovascular Exam Cardiovascular: Present RRR, Normal S1 and Normal S2; Absent murmur, gallop or rubs *Routine Abdominal Exam Abdominal: Present soft; Absent tenderness *Routine Extremities Exam Extremities: Present pulses intact; Absent cyanosis or edema *Routine Skin Exam Skin: Present intact; Absent erythema or wounds *Routine Neurological Exam Neurological: Present alert and oriented X3 Routine Psychiatric Exam Psychiatric: Present cooperative Progress Note: A&P Assessment and plan (1) CAD (coronary artery disease): Status: Acute (2) STEMI (ST elevation myocardial infarction): Status: Acute (3) Hypertension: Status: Acute (4) HLD (hyperlipidemia): Status: Acute Assessment and Plan Assessment and Plan for All Diagnoses:: Multivessel CAD status post IW-STEMI - new dx this admission - [facility]: thrombectomy stenting of RCA, LAD/LCX 70% and will have staged interven tion in approximately 2 weeks - Cont DAPT, BB, Statin - ECHO shows normal Bi-V function - 48 observation post STEMI NSVT - cont beta blockers - may place 2 week monitor at discharge Asymptomatic Sinus Jacques - pt states she has had HR in 50s throughout her life - reduces to 40s some at night in setting of hypoxia - needs sleep study Nocturnal Hypoxia - recommend sleep study Htn - stable currently - start BB, ARB HLD - check lipid panel - start high dose statin Tob - advise cessation CV stable, likely home tomorrow afternoon.
--- NOTE | 2024-01-22 16:03 | P.PN_ITS ---
Subjective *Date: 01/22/24 *Time: 16:03 Interval history: Today, patient states she is doing well without chest pain, shortness of breath. No events on telemetry. Anticipate discharge tomorrow if stable. Exam Data for Last 24 hours Vital signs and Labs for Last 24 Hours: Temp Pulse Resp BP Pulse Ox O2 Del Method O2 Flow Rate 98.6 F 52 L 17 111/50 L 91 L Room Air 2 01/22/24 12:00 01/22/24 12:00 01/22/24 12:00 01/22/24 12:00 01/22/24 12:00 01/22/24 12:53 01/22/24 06:00 Laboratory Results - last 24 hr 01/21/24 09:27: Magnesium 1.7, Hepatitis C Antibody Non reactive, HIV 1&2 Antibody Rapid Nonreactive 01/22/24 05:35: WBC 12.8 H, RBC 5.18, Hgb 14.9 D, Hct 45.5, MCV 87.7, MCH 28.8, MCHC 32.8, RDW 13.8, Plt Count 197, MPV 10.1, Neut % (Auto) 68.2, Lymph % (Auto) 24.6, [place] % (Auto) 5.3, Eos % (Auto) 1.2, Baso % (Auto) 0.7, Neut # (Auto) 8.7 H, Lymph # (Auto) 3.1, [place] # (Auto) 0.7, Eos # (Auto) 0.2, Baso # (Auto) 0.1, Sodium 138, Potassium 3.9, Chloride 106, Carbon Dioxide 26, Anion Gap 9.9, BUN 12, Creatinine 0.90, Estimated Creat Clear 64, Estimated GFR 63, Est GFR ( Amer) 77, Glucose 110 H D, Hemoglobin A1c 6.0, Calcium 8.9, Magnesium 2.3 D, Total Bilirubin 0.5, AST 70 H D, ALT 18, Alkaline Phosphatase 70, Total Protein 6.4, Albumin 3.8 D, Globulin 2.6, Albumin/Globulin Ratio 1.5, Procalcitonin 0.040, TSH 2.58, Free T4 0.88 01/22/24 11:20: Urine Color Yellow, Urine Appearance Clear, Urine pH 6.0, Ur Specific [place] 1.010, Urine Protein Negative, Urine Glucose (UA) Negative, Urine Ketones Negative, Urine Blood Negative, Urine Nitrate Negative, Urine Bilirubin Negative, Urine Urobilinogen 0.2, Ur Leukocyte Esterase Negative, Urine RBC None, Urine WBC None, Ur Squamous Epith Cells Occasional, Urine Bacteria Trace I & O for Last 24 hours: Intake & Output 01/19/24 01/20/24 01/21/24 01/22/24 23:59 23:59 23:59 23:59 Intake Total 360 / 960 1320 / 1320 Output Total 0 / 0 0 / 0 Balance 360 / 960 1320 / 1320 Weight 68.946 kg 69.4 kg Constitutional Constitutional: no acute distress *Routine HEENT Exam Head: Present normocephalic Eye: Present EOMI and PERRL ENT: Present mucous membranes moist *Routine Neck Exam Neck: Present supple; Absent lymphadenopathy *Routine Respiratory Exam Respiratory: Present CTA bilaterally *Routine Cardiovascular Exam Cardiovascular: Present RRR *Routine Abdominal Exam Abdominal: Present soft and normoactive bowel sounds; Absent tenderness *Routine Extremities Exam Extremities: Absent cyanosis, clubbing or edema *Routine Skin Exam Skin: Present warm; Absent rash *Routine Neurological Exam Neurological: Present alert and oriented X3 Assessment and Plan *Assessment and plan (1) CAD (coronary artery disease): Status: Acute Category: Medical Code(s): I25.10 - Atherosclerotic heart disease of [place] coronary artery without angina pectoris (2) STEMI (ST elevation myocardial infarction): Status: Acute Category: Medical Code(s): I21.3 - ST elevation (STEMI) myocardial infarction of unspecified site (3) Hypertension: Status: Acute Category: Medical Code(s): I10 - Essential (primary) hypertension (4) HLD (hyperlipidemia): Status: Acute Category: Medical Code(s): E78.5 - Hyperlipidemia, unspecified (5) V-tach: Status: Acute Category: Medical Code(s): I47.20 - Ventricular tachycardia, unspecified Plan Ilana Allen is a 63-year-old female with a medical history significant for chronic tobacco use, hypertension who presented with worsening chest pain and found to have a STEMI. Patient states she had a mild gradual onset of left- sided chest heaviness which began Saturday and occurred intermittently over the ne xt couple of days. This morning she woke up and felt the pain was getting worse with radiation to her jaws. On arrival to the emergency room she was noted to have ST elevation inferior leads, code STEMI was called and patient was taken emergently to the [facility] where she had successful thrombectomy and stenting of her RCA. LAD and left circumflex both of 70% stenosis left for staged intervention at a later time. Upon my arrival postcatheterization, patient was lying in bed comfortably this afternoon without chest pain, shortness of breath. She states she is open to quitting smoking, but will think about it more. Open to nicotine patches. Will require 48 hours observation and cardiac telemetry post PCI for STEMI. #STEMI #CAD #Hypertension ? S/p thrombectomy of proximal RCA with RADHA x3 on 01/21/2024. Persistent severe to moderate disease of mid LAD, which cardiology plans to PCI in 2 weeks. ? Cardiology consulted, started aspirin 81 mg and Brilinta 90 mg twice a day, atorvastatin 80 mg, metoprolol succinate 25 mg, irbesartan 75 mg. Blood pressures were little soft today so irbesartan held. ? Will need to monitor for 48 hours after STEMI s/p PCI with stents. ? Today, patient states she is doing well without chest pain, shortness of breath. No events on telemetry. Anticipate discharge tomorrow if stable. ? Continuous cardiac telemetry. ? ECHO reveals normal biventricular systolic function. ? LDL 112, A1c 6.0, TSH and T4 normal. #Nonsustained V. tach ? Observed on telemetry, about 12 beats on 01/21/2024. ? Repleted potassium, magnesium. ? No longer having V. tach on cardiac telemetry. ? Followed up with cardiology, likely due to reperfusion of RCA. ? Continue to monitor on cardiac telemetry. ? Normal thyroid studies. ? K >4, magnesium >2. #Leukocytosis ? WBC increased to 12.8. Likely reactive in the setting of STEMI and PCI. ? Afebrile, no tachycardia. No signs of infection. ? CXR, UA, procalcitonin unremarkable. ? Continue to monitor. #Tobacco use disorder ? Counseled on smoking cessation. Patient will think about it. Open to nicotine patch. ? Nicotine patch daily. Full code DVT prophylaxis: Lovenox 40 Cardiac diet
--- NOTE | 2024-01-22 16:48 | PC.NURSE ---
PT IS RESTING IN BED. ALERT AND ORIENTED X4. EATING AND DRINKING WELL. AMBULATES TO THE BATHROOM. NO COMPLAINTS OF CP OR SOA. DRESSING TO RIGHT RADIAL CATH SITE C/D/I. PT HAS BEEN GRANT ON TELEMETRY. WILL CONTINUE TO MONITOR.
[2024-01-22] MEDS: ATORVASTATIN 40MG TABLET 80 MG PO (20:39)
[2024-01-23] VITALS: BP 107/64; PULSE 50; PULSE 56; RESP 18; TEMP 36.7; O2SAT 94
[2024-01-23 04:00] VITALS: BP 137/69; PULSE 60; PULSE 63; RESP 16; TEMP 36.9; O2SAT 91; BMI 26.9
--- NOTE | 2024-01-23 05:48 | PC.NURSE ---
Pt is A&OX4 and has tolerated room air. She has denied any pain or SOA throughout the shift. Dressing over right radial cath site has remained c/d/i. She has ambulated independently to bathroom. Family has remained at bedside throughout the night. Currently Awake in bed with call light within reach.
[2024-01-23 06:21] LABS: Basophils % 0.4 % (0.1-2.0); Eosinophils # 0.3 K/mm3 (0.0-0.4); Eosinophils % 2.3 % (0.1-12.0); Hematocrit 45.1 % (37.0-47.0); Hemoglobin 15.1 g/dL (12.2-16.2); Lymphocytes # 2.8 K/mm3 (0.7-4.5); Lymphocytes % 25.5 % (10-50); Mean Corpuscular HGB Conc 33.5 g/dL (31.8-35.4); Mean Corpuscular Hemoglobin 29.3 pg (27.0-31.2); Mean Corpuscular Volume 87.4 fl (81-99); Mean Platelet Volume 10.2 fl (7.4-10.4); Monocytes # 0.6 K/mm3 (0.1-1.0); Monocytes % 5.5 % (1.7-9.3); Neutrophils # 7.2 K/mm3 (1.8-7.8); Neutrophils % 66.3 % (37.0-80.0); Platelet Count 179 K/mm3 (142-424); Red Blood Count 5.16 M/mm3 (4.20-5.40); Red Cell Distribution Width 13.5 % (11.5-17.5); White Blood Count 10.9 K/mm3 (4.8-10.8)
[2024-01-23 06:28] LABS: Albumin Level 3.7 g/dl (3.5-5.0); Chloride 108 mmol/L (98-107); Potassium 3.9 mmoL/L (3.5-5.1); Sodium 139 mmol/L (136-145)
[2024-01-23 06:30] LABS: Blood Urea Nitrogen 11 mg/dl (7-17); Creatinine Clearance Estimated 63 mL/min (50-200); Estimated Glomerular Filt Rate 73 ml/min (>60); GFR (African American) 88 ML/MIN (>60)
[2024-01-23 06:31] LABS: Alanine Aminotransferase 15 U/L (12-78); Alkaline Phosphatase 66 U/L (38-126); Anion Gap 8.9 mEq/L (5-15); Aspartate Amino Transferase 38 U/L (14-36); Bilirubin,Total 0.6 mg/dl (0.2-1.3); Carbon Dioxide 26 mmol/L (22.0-30.0); Glucose 111 mg/dl (74-100); Total Protein,Serum 6.2 g/dl (6.3-8.2)
[2024-01-23 06:34] LABS: Albumin/Globulin Ratio 1.5 (1.1-1.8); Globulin 2.5 g/dL (1.3-3.2)
[2024-01-23 08:00] VITALS: BP 141/60; PULSE 50; PULSE 54; PULSE 60; RESP 18; TEMP 36.7; O2SAT 96
[2024-01-23] MEDS: IRBESARTAN 75MG TABLET 75 MG PO (08:46)
[2024-01-23] MEDS: ASPIRIN EC 81MG TABLET 81 MG PO (08:46)
[2024-01-23] MEDS: NICOTINE 21MG/24HR PATCH 21 MG TD (08:46)
[2024-01-23] MEDS: METOPROLOL SUCCINATE XL 25MG TABLET 25 MG PO (08:46)
[2024-01-23] MEDS: TICAGRELOR 90MG TABLET 90 MG PO (08:46)
[2024-01-23 12:00] VITALS: BP 151/82; PULSE 60; PULSE 62; RESP 19; TEMP 36.8; O2SAT 94
--- NOTE | 2024-01-23 12:44 | P.PN_ITS ---
Subjective Subjective Date: 01/23/24 Time: 09:30 Interval history: No events overnight. Pt tolerating GDMT without complication. Labs and vitals stable. Pt feels ready for discharge. Exam Data for Last 24 hours Vital signs and Labs for Last 24 Hours: Temp Pulse Resp BP Pulse Ox O2 Del Method O2 Flow Rate 98.1 F 60 18 141/60 H 96 Room Air 2 01/23/24 08:00 01/23/24 08:00 01/23/24 08:00 01/23/24 08:00 01/23/24 08:00 01/23/24 11:00 01/22/24 06:00 Laboratory Results - last 24 hr 01/22/24 11:20: Urine Color Yellow, Urine Appearance Clear, Urine pH 6.0, Ur Specific [place] 1.010, Urine Protein Negative, Urine Glucose (UA) Negative, Urine Ketones Negative, Urine Blood Negative, Urine Nitrate Negative, Urine Bilirubin Negative, Urine Urobilinogen 0.2, Ur Leukocyte Esterase Negative, Urine RBC None, Urine WBC None, Ur Squamous Epith Cells Occasional, Urine Bacteria Trace 01/23/24 05:27: WBC 10.9 H, RBC 5.16, Hgb 15.1, Hct 45.1, MCV 87.4, MCH 29.3, MCHC 33.5, RDW 13.5, Plt Count 179, MPV 10.2, Neut % (Auto) 66.3, Lymph % (Auto) 25.5, [place] % (Auto) 5.5, Eos % (Auto) 2.3, Baso % (Auto) 0.4, Neut # (Auto) 7.2, Lymph # (Auto) 2.8, [place] # (Auto) 0.6, Eos # (Auto) 0.3, Baso # (Auto) 0.0, Sodium 139, Potassium 3.9, Chloride 108 H, Carbon Dioxide 26, Anion Gap 8.9, BUN 11, Creatinine 0.80, Estimated Creat Clear 63, Estimated GFR 73, Est GFR ( Amer) 88, Glucose 111 H, Calcium 9.0, Total Bilirubin 0.6, AST 38 H D, ALT 15, Alkaline Phosphatase 66, Total Protein 6.2 L, Albumin 3.7, Globulin 2.5, Albumin/Globulin Ratio 1.5 I & O for Last 24 hours: Intake & Output 01/20/24 01/21/24 01/22/24 01/23/24 23:59 23:59 23:59 23:59 Intake Total 360 / 960 1799 / 0 610 / 610 Output Total 0 / 0 0 / 0 0 / 0 Balance 360 / 960 1799 / 0 610 / 610 Weight 152 lb 153 lb 151 lb 10.848 oz Constitutional Constitutional: no acute distress and cooperative *Routine HEENT Exam Eye: Present PERRL *Routine Respiratory Exam Respiratory: Present CTA bilaterally; Absent accessory muscle use, wheezes or crackles *Routine Cardiovascular Exam Cardiovascular: Present RRR, Normal S1 and Normal S2; Absent murmur, gallop or rubs Comments: right radial cath site normal on inspection and palpation *Routine Abdominal Exam Abdominal: Present soft; Absent tenderness *Routine Extremities Exam Extremities: Present pulses intact; Absent cyanosis or edema *Routine Skin Exam Skin: Present intact; Absent erythema or wounds *Routine Neurological Exam Neurological: Present alert and oriented X3 Routine Psychiatric Exam Psychiatric: Present cooperative Progress Note: A&P Assessment and plan (1) CAD (coronary artery disease): Status: Acute (2) STEMI (ST elevation myocardial infarction): Status: Acute (3) Hypertension: Status: Acute (4) HLD (hyperlipidemia): Status: Acute (5) V-tach: Status: Acute Assessment and Plan Assessment and Plan for All Diagnoses:: Multivessel CAD status post IW-STEMI - new dx this admission - LHC: thrombectomy and stenting of RCA, LAD/LCX 70% and will have staged intervention in approximately 2 weeks - Cont DAPT, BB, Statin - ECHO shows normal Bi-V function - 48 observation post STEMI - complete NSVT - cont beta blockers - will place 2 week monitor at discharge Asymptomatic Sinus Jacques - pt states she has had HR in 50s throughout her life - reduces to 40s some at night in setting of hypoxia - needs sleep study Nocturnal Hypoxia - recommend sleep study Htn - stable currently - cont BB, ARB HLD - LDL 112, goal <55 - start high dose statin Tob - pt agreeable to transdermal nicotine at discharge. *CV stable for DC Home with above meds and plan of care. She needs 2 week monitor at discharge. Office f/u with us 1 week. Staged PCI to LAD/LCX in 2 weeks. CV DC Meds: Aspirin 81 mg 1 p.o. daily Brilinta 90 mg 1 p.o. twice daily Atorvastatin 80 mg 1 p.o. nightly Toprol-XL 25 mg 1 p.o. daily Irbesartan 75 mg 1 p.o. daily Nicotine transdermal patches 21 mg patch taper
--- NOTE | 2024-01-23 14:19 | P.DS_ITS ---
General Admission date:: 01/21/24 HPI HPI HPI: Ilana Allen is a 63-year-old female with a medical history significant for chronic tobacco use, hypertension who presented with worsening chest pain and found to have a STEMI. Patient states she had a mild gradual onset of left- sided chest heaviness which began Saturday and occurred intermittently over the next couple of days. This morning she woke up and felt the pain was getting worse with radiation to her jaws. On arrival to the emergency room she was noted to have ST elevation inferior leads, code STEMI was called and patient was taken emergently to the [facility] where she had successful thrombectomy and stenting of her RCA. LAD and left circumflex both of 70% stenosis left for staged intervention at a later time. Upon my arrival postcatheterization, patient was lying in bed comfortably this afternoon without chest pain, shortness of breath. She states she is open to quitting smoking, but will think about it more. Open to nicotine patches. Hospital Course Hospital Course Hospital Course: Ilana Allen is a 63-year-old female with a medical history significant for chronic tobacco use, hypertension who presented with worsening chest pain and found to have a STEMI. #STEMI #CAD #Hypertension ? S/p thrombectomy of proximal RCA with RADHA x3 on 01/21/2024. Persistent severe to moderate disease of mid LAD, which cardiology plan for PCI in 2 weeks. ? Cardiology consulted, started aspirin 81 mg and Brilinta 90 mg twice a day, atorvastatin 80 mg, metoprolol succinate 25 mg, irbesartan 75 mg. ? Will need to monitor for 48 hours after STEMI s/p PCI with stents. ? Hospital course was uncomplicated. Patient she is doing well without chest pain, shortness of breath. No events on telemetry. ? ECHO reveals normal biventricular systolic function. ? LDL 112, A1c 6.0, TSH and T4 normal. - Discharged with above medications. Will follow-up with cardiology within 1 week. #Nonsustained V. tach ? Observed on telemetry, about 12 beats on 01/21/2024. ? Repleted potassium, magnesium. ? No longer having V. tach on cardiac telemetry. ? Discussed with cardiology, likely due to reperfusion of RCA. Continue beta- kristi. ? Normal thyroid studies. - Discharged with 2 week event monitor. #Leukocytosis ? WBC 12.8->10.9. Reactive in the setting of STEMI and PCI. ? Afebrile, no tachycardia. No signs of infection. ? CXR, UA, procalcitonin unremarkable. #Tobacco use disorder ? Counseled on smoking cessation. Patient will think about it. Open to nicotine patch. ? Discharged with Nicotine patches daily. Exam Data for Last 24 hours Vital signs and Labs for Last 24 Hours: Temp Pulse Resp BP Pulse Ox O2 Del Method O2 Flow Rate 98.2 F 62 19 151/82 H 94 L Room Air 2 01/23/24 12:00 01/23/24 12:00 01/23/24 12:00 01/23/24 12:00 01/23/24 12:00 01/23/24 13:51 01/22/24 06:00 Laboratory Results - last 24 hr 01/23/24 05:27: WBC 10.9 H, RBC 5.16, Hgb 15.1, Hct 45.1, MCV 87.4, MCH 29.3, MCHC 33.5, RDW 13.5, Plt Count 179, MPV 10.2, Neut % (Auto) 66.3, Lymph % (Auto) 25.5, [place] % (Auto) 5.5, Eos % (Auto) 2.3, Baso % (Auto) 0.4, Neut # (Auto) 7.2, Lymph # (Auto) 2.8, [place] # (Auto) 0.6, Eos # (Auto) 0.3, Baso # (Auto) 0.0, Sodium 139, Potassium 3.9, Chloride 108 H, Carbon Dioxide 26, Anion Gap 8.9, BUN 11, Creatinine 0.80, Estimated Creat Clear 63, Estimated GFR 73, Est GFR ( Amer) 88, Glucose 111 H, Calcium 9.0, Total Bilirubin 0.6, AST 38 H D, ALT 15, Alkaline Phosphatase 66, Total Protein 6.2 L, Albumin 3.7, Globulin 2.5, Albumin/Globulin Ratio 1.5 I & O for Last 24 hours: Intake & Output 01/20/24 01/21/24 01/22/24 01/23/24 23:59 23:59 23:59 23:59 Intake Total 360 / 960 1800 / 2050 970 / 970 Output Total 0 / 0 0 / 0 0 / 0 Balance 360 / 960 1800 / 2050 970 / 970 Weight 68.946 kg 69.4 kg 68.8 kg Constitutional Constitutional: no acute distress *Routine HEENT Exam Head: Present normocephalic Eye: Present EOMI and PERRL ENT: Present mucous membranes moist *Routine Neck Exam Neck: Present supple; Absent lymphadenopathy *Routine Respiratory Exam Respiratory: Present CTA bilaterally *Routine Cardiovascular Exam Cardiovascular: Present RRR *Routine Abdominal Exam Abdominal: Present soft and normoactive bowel sounds; Absent tenderness *Routine Extremities Exam Extremities: Absent cyanosis, clubbing or edema *Routine Skin Exam Skin: Present warm; Absent rash *Routine Neurological Exam Neurological: Present alert and oriented X3 Results Data Completed and Pending Labs on day of discharge: Labs from last 24 hours 01/23/24 05:27 WBC 10.9 H RBC 5.16 Hgb 15.1 Hct 45.1 MCV 87.4 MCH 29.3 MCHC 33.5 RDW 13.5 Plt Count 179 MPV 10.2 Neut % (Auto) 66.3 Lymph % (Auto) 25.5 [place] % (Auto) 5.5 Eos % (Auto) 2.3 Baso % (Auto) 0.4 Neut # (Auto) 7.2 Lymph # (Auto) 2.8 [place] # (Auto) 0.6 Eos # (Auto) 0.3 Baso # (Auto) 0.0 Sodium 139 Potassium 3.9 Chloride 108 H Carbon Dioxide 26 Anion Gap 8.9 BUN 11 Creatinine 0.80 Estimated Creat Clear 63 Estimated GFR 73 Est GFR ( Amer) 88 Glucose 111 H Calcium 9.0 Total Bilirubin 0.6 AST 38 H D ALT 15 Alkaline Phosphatase 66 Total Protein 6.2 L Albumin 3.7 Globulin 2.5 Albumin/Globulin Ratio 1.5 DS: Diagnosis Discharge Diagnosis (1) CAD (coronary artery disease): Status: Acute Code(s): I25.10 - Atherosclerotic heart disease of [place] coronary artery without angina pectoris (2) STEMI (ST elevation myocardial infarction): Status: Acute Code(s): I21.3 - ST elevation (STEMI) myocardial infarction of unspecified site (3) Hypertension: Status: Acute Code(s): I10 - Essential (primary) hypertension (4) HLD (hyperlipidemia): Status: Acute Code(s): E78.5 - Hyperlipidemia, unspecified (5) V-tach: Status: Acute Code(s): I47.20 - Ventricular tachycardia, unspecified Meds Home Medications and Allergies Home Medications ?Medication ?Instructions ?Recorded ?Confirmed ?Type aspirin 81 mg tablet,delayed 81 mg PO DAILY 30 days #30 tabs 01/23/24 Rx release atorvastatin 40 mg tablet 80 mg (2 x 40 mg) PO HS 30 days 01/23/24 Rx #60 tabs irbesartan 75 mg tablet 75 mg PO DAILY 30 days #30 tabs 01/23/24 Rx metoprolol succinate 25 mg 25 mg PO DAILY 30 days #30 tabs 01/23/24 Rx tablet,extended release 24 hr nicotine 21 mg/24 hr daily 21 mg transdermal DAILY 30 days 01/23/24 Rx transdermal patch #30 ea ticagrelor 90 mg tablet (Brilinta) 90 mg PO BID 30 days #60 tabs 01/23/24 Rx New Prescriptions to Start Prescriptions: aspirin William,Carlos atorvastatin William,Carlos irbesartan William,Carlos metoprolol succinate William,Carlos nicotine William,Carlos ticagrelor [Brilinta] William,Carlos Allergies Allergy/AdvReac Type Severity Reaction Status Date / Time No Known Allergies Allergy Verified 01/21/24 09:30 Discharge Plan Disposition Patient Disposition: Home, Self-Care Condition: Fair Discharge Order Discharge Orders: Discharge Order (Routine); Ordered 01/23/24 Ordered By: Carlos Thomas Follow up Plan Follow up with: Leah Smith [Referring] - 01/31/24 10:00 am Alpesh Townsend MD [Staff Physician] - 01/30/24 10:15 am (WITH CESAR ORDAZ) Prescriptions/Medication Reconciliation: New atorvastatin 40 mg Tablet 80 mg PO HS 30 Days Qty: 60 0RF aspirin 81 mg Tablet,Delayed Release (Dr/Ec) 81 mg PO DAILY 30 Days Qty: 30 0RF irbesartan 75 mg Tablet 75 mg PO DAILY 30 Days Qty: 30 0RF metoprolol succinate 25 mg Tablet Extended Release 24 Hr 25 mg PO DAILY 30 Days Qty: 30 0RF Brilinta 90 mg Tablet 90 mg PO BID 30 Days Qty: 60 0RF nicotine 21 mg/24 hr Patch 24 Hour 21 mg transdermal DAILY 30 Days Qty: 30 0RF Discontinued atorvastatin 20 mg tablet 20 mg PO HS Patient Comments: TAKE 1 TABLET BY MOUTH EVERY NIGHT lisinopril-hydrochlorothiazide 20-12.5 mg tablet 1 tab PO DAILY Patient Comments: TAKE 1 TABLET BY MOUTH EVERY MORNING amlodipine 2.5 mg tablet 2.5 mg PO DAILY Patient Comments: TAKE 1 TABLET BY MOUTH EVERY DAY Problem Reconciliation Problems Reviewed?: Yes Patient Discharge Instructions ACTIVITY: Ambulate as tolerated DIET: cardiac Additional Instructions: You will need a event monitor before discharge. Please follow-up with your student affairs dean within 2 weeks Patient Instructions: Heart Attack, Cardiac Catheterization, Coronary Stenting, Surgical Site Infection, Moderate Sedation, DI for Post-Surgical Bleeding Print Language: German Providers Primary Care Provider: Provider,Referral Admit Provider: Carlos Thomas Attending Provider: Carlos Thomas
--- NOTE | 2024-01-24 13:50 | CARE MANAGER ---
Contacted patient related to hospital discharge. She states she is doing well. She has all her new medications and is aware of follow up appointment. Denies questions or concerns. JOSH Leslie
== END 2024-01-23 16:03 | disposition home or self-care (01) | DRG 322 ==
LOC: ER 10:06 → CATHLAB 10:30 → 2ND 11:30
PROVIDERS: Internal Medicine; Admitting Provider Student in an Organized Health Care Education/Training Program; Emergency Provider Emergency Medicine; Visit Provider Student in an Organized Health Care Education/Training Program
PROC: 027036Z Dilation of Coronary Artery, One Artery with Three Drug-eluting Intraluminal Devices, Percutaneous Approach (ICD-10-PCS; principal; 2024-01-21 09:30)
DX: I21.19 ST elevation (STEMI) myocardial infarction involving other coronary artery of inferior wall (principal); I47.20 Ventricular tachycardia, unspecified; I47.29 Other ventricular tachycardia; I25.10 Atherosclerotic heart disease of native coronary artery without angina pectoris; I10 Essential (primary) hypertension; E78.5 Hyperlipidemia, unspecified; F17.210 Nicotine dependence, cigarettes, uncomplicated; Z71.6 Tobacco abuse counseling
CPT/HCPCS: 93458; 36415; 71045; 80053; 80061; 81001; 83036; 83735; 83880; 84145; 84439; 84443; 84484; 85025; 85347; 85610; 85730; 86803; 87389; 92928; 93005; 93270; 93306; 93454; 99152; 99153; 99291; C1725; C1769; C1874; C9600; J0461; J1200; J1644; J2250; J2405; J3010; J3475; Q9967

== ENCOUNTER 2024-01-30 08:53 | Outpatient (CLI) | payer BC, SELFPAY ==
[2024-01-30 09:36] LABS: Basophils # 0.1 K/mm3 (0-0.2); Basophils % 1.3 % (0.1-2.0); Eosinophils # 0.3 K/mm3 (0.0-0.4); Eosinophils % 2.7 % (0.1-12.0); Hematocrit 43.9 % (37.0-47.0); Hemoglobin 15.1 g/dL (12.2-16.2); Lymphocytes # 2.3 K/mm3 (0.7-4.5); Lymphocytes % 21.6 % (10-50); Mean Corpuscular HGB Conc 34.5 g/dL (31.8-35.4); Mean Corpuscular Hemoglobin 30.4 pg (27.0-31.2); Mean Platelet Volume 9.8 fl (7.4-10.4); Monocytes # 0.5 K/mm3 (0.1-1.0); Monocytes % 4.5 % (1.7-9.3); Neutrophils # 7.4 K/mm3 (1.8-7.8); Neutrophils % 69.9 % (37.0-80.0); Platelet Count 205 K/mm3 (142-424); Red Blood Count 4.98 M/mm3 (4.20-5.40); Red Cell Distribution Width 13.4 % (11.5-17.5); White Blood Count 10.6 K/mm3 (4.8-10.8)
[2024-01-30 10:01] LABS: Anion Gap 10.2 mEq/L (5-15); Blood Urea Nitrogen 10 mg/dl (7-17); Calcium 9.3 mg/dl (8.4-10.2); Carbon Dioxide 28 mmol/L (22.0-30.0); Chloride 107 mmol/L (98-107); Estimated Glomerular Filt Rate 85 ml/min (>60); GFR (African American) 103 ML/MIN (>60); Glucose 101 mg/dl (74-100); Potassium 4.2 mmoL/L (3.5-5.1); Sodium 141 mmol/L (136-145)
== END 2024-01-30 23:59 | disposition home or self-care (01) ==
LOC: LAB 08:55
PROVIDERS: PCP Family Medicine; Visit Provider Internal Medicine
DX: I21.3 ST elevation (STEMI) myocardial infarction of unspecified site (principal); Z72.0 Tobacco use
CPT/HCPCS: 36415; 80048; 85025

== ENCOUNTER 2024-02-07 12:31 | Outpatient (RCR) | payer BC, SELFPAY | END 2024-05-27 14:00 | disposition home or self-care (01) | LOC: CR 12:31 | PROVIDERS: Visit Provider Internal Medicine | DX: I21.3 ST elevation (STEMI) myocardial infarction of unspecified site (principal) ==

== ENCOUNTER 2024-02-12 08:39 | Day surgery (SDC) | payer BC, SELFPAY ==
[2024-02-12] VITALS (14 sets, daily range): BP systolic 130–200; BP diastolic 70–100; PULSE 60–84; RESP 16–20; O2SAT 92–99; BMI 27.6
--- NOTE | 2024-02-12 06:57 | IR_ITS ---
APPROVED REPORT Patient Location: Outpatient PROCEDURES Selective coronary angiogram Drug-eluting stent deployment to the proximal mid and distal LAD in a contiguous manner Drug-eluting stent deployment to the proximal circumflex artery INDICATION Recent ST elevation myocardial infarction, Coronary artery disease Informed consent was obtained prior to the procedure. COMPLICATIONS NONE Estimated Blood Loss: LESS THAN 10 ML TECHNIQUE One percent lidocaine used to anesthetize the right anterior aspect of the wrist. The right radial artery was accessed via the Seldinger technique. A 6 [place] sheath was placed in the right radial artery. 2.5 mg of Verapamil, 800 mcg of nitroglycerin, 1mg Lidocaine and 5000 U Heparin were given through the arterial sheath. The 6 [place] JL 3 catheter was used to perform selective coronary angiogram. Therapeutic heparin was administered giving a therapeutic ACT and the guide catheters placed in left main artery followed by Choice PT extra-support wire down the circumflex artery. A 3.5 x 22 mm [place] frontier stent was deployed at 16 wei reducing the stenosis to 30%. A 3.5 x 12 mm noncompliant balloon was deployed at 24 wei in the midportion of further post dilate. The balloon was brought back and deployed at 24 wei in the proximal portion of the stent. EHSAN-3 flow was present before and after the procedure. Following this an additional Choice PT extra-support wire was placed into the LAD where a 2.75 x 38 mm [place] frontier stent was deployed in the mid LAD at 16 wei. A 3.5 x 22 mm [place] frontier stent was placed proximal to the for stent yet still overlapping the stent and deployed at 20 wei. The balloon was advanced into the 2.75 mm stent and deployed on 3 occasions at 12 wei. An additional 2.5 x 22 mm [place] frontier stent was placed distal to the 2.75 mm stent yet still overlapping and deployed at 20 wei. The balloon was brought back and deployed at 24 wei to match the 2 stents. EHSAN-3 flow was present before and after the procedure. After achieving excellent angiograph results apparatus was removed the sheath was removed and hemostasis was achieved using TR banding patient was transferred to the postop putting in stable condition IMPRESSION Successful stenting of the proximal mid and distal LAD severe disease reduced to 0% with 3 contiguous drug-eluting stents Successful stenting of the proximal circumflex artery severe disease reduced to 0% with 1 drug-eluting stent PLAN 1. Continue dual antiplatelet therapy 2. Continue medical management 3. Continue with LDL treatment goal less than 55 to be achieved with high intensity statin 4. Avoidance of tobacco products 5. Risk factor modification Electronically signed by : Alpesh Townsend MD 02/12/2024 13:58:06
[2024-02-12] MEDS: HEPARIN 1,000 UNITS/ML 10ML VIAL (CATH LAB) 10000 UNIT IV (10:36)
[2024-02-12] MEDS: HEPARIN 1,000 UNITS/500ML NS (CATH LAB) 3000 UNIT IV (10:36)
[2024-02-12] MEDS: FENTANYL 100MCG/2ML VIAL 50 MCG IV (10:37)
[2024-02-12] MEDS: MIDAZOLAM HCL 1MG/ML 5ML VIAL 1 MG IV (10:37)
[2024-02-12] MEDS: LIDOCAINE 1% 10ML MDV 20 ML IJ (10:37)
[2024-02-12] MEDS: VERAPAMIL 2.5MG/ML 2ML VIAL 2.5 MG IV (10:37)
[2024-02-12] MEDS: 0.9 % SODIUM CHLORIDE 500 ML 25 ML IV (10:38)
[2024-02-12] MEDS: NITROGLYCERIN 800MCG/8ML SYR (CATH LAB) 800 MCG IA (10:38)
[2024-02-12] MEDS: diphenhydrAMINE 50MG/ML VIAL 50 MG IV (10:45)
[2024-02-12] MEDS: LABETALOL 20MG/4ML SYRINGE 20 MG IV (11:07)
[2024-02-12] MEDS: IOPAMIDOL-370 (76%);100ML BOTTLE 110 ML IV (14:19)
== END 2024-02-12 14:27 | disposition home or self-care (01) ==
PROVIDERS: PCP Family Medicine; Visit Provider Internal Medicine
DX: I25.118 Atherosclerotic heart disease of native coronary artery with other forms of angina pectoris (principal); I21.02 ST elevation (STEMI) myocardial infarction involving left anterior descending coronary artery; I10 Essential (primary) hypertension; F17.210 Nicotine dependence, cigarettes, uncomplicated; I47.20 Ventricular tachycardia, unspecified; G47.34 Idiopathic sleep related nonobstructive alveolar hypoventilation; E78.5 Hyperlipidemia, unspecified; Z79.899 Other long term (current) drug therapy
CPT/HCPCS: 92928; 99152; 99153; C1725; C1769; C1874; C9600; J1200; J1644; J1920; J2250; J3010; Q9967

== ENCOUNTER 2024-02-15 09:45 | Outpatient (CLI) | payer BC, SELFPAY ==
[2024-02-15 10:33] LABS: Basophils # 0.1 K/mm3 (0-0.2); Basophils % 0.6 % (0.1-2.0); Eosinophils # 0.4 K/mm3 (0.0-0.4); Eosinophils % 3.4 % (0.1-12.0); Hematocrit 45.9 % (37.0-47.0); Hemoglobin 15.2 g/dL (12.2-16.2); Lymphocytes # 2.7 K/mm3 (0.7-4.5); Lymphocytes % 21.8 % (10-50); Mean Corpuscular HGB Conc 33.1 g/dL (31.8-35.4); Mean Corpuscular Hemoglobin 29.1 pg (27.0-31.2); Mean Corpuscular Volume 87.8 fl (81-99); Mean Platelet Volume 9.6 fl (7.4-10.4); Monocytes # 0.6 K/mm3 (0.1-1.0); Monocytes % 4.5 % (1.7-9.3); Neutrophils # 8.8 K/mm3 (1.8-7.8); Neutrophils % 69.7 % (37.0-80.0); Platelet Count 243 K/mm3 (142-424); Red Blood Count 5.23 M/mm3 (4.20-5.40); Red Cell Distribution Width 13.4 % (11.5-17.5); White Blood Count 12.6 K/mm3 (4.8-10.8)
[2024-02-15 10:46] LABS: Chloride 104 mmol/L (98-107); Potassium 4.5 mmoL/L (3.5-5.1); Sodium 139 mmol/L (136-145)
[2024-02-15 10:49] LABS: Anion Gap 11.5 mEq/L (5-15); Blood Urea Nitrogen 12 mg/dl (7-17); Calcium 9.9 mg/dl (8.4-10.2); Carbon Dioxide 28 mmol/L (22.0-30.0); Estimated Glomerular Filt Rate 73 ml/min (>60); GFR (African American) 88 ML/MIN (>60); Glucose 112 mg/dl (74-100)
== END 2024-02-15 23:59 | disposition home or self-care (01) ==
PROVIDERS: PCP Family Medicine; Visit Provider Internal Medicine
DX: I25.10 Atherosclerotic heart disease of native coronary artery without angina pectoris (principal); Z72.0 Tobacco use
CPT/HCPCS: 36415; 80048; 85025

== ENCOUNTER → 2024-03-16 06:23 | Outpatient (CLI) | payer BC, SELFPAY | LOC: SL 06:23 | PROVIDERS: PCP Physician Assistant; Visit Provider Physician Assistant | DX: G47.34 Idiopathic sleep related nonobstructive alveolar hypoventilation (principal) | CPT/HCPCS: G0399 ==

== ENCOUNTER 2024-05-14 09:14 | Outpatient (CLI) | payer BC, SELFPAY ==
[2024-05-14 10:15] LABS: Albumin Level 4.3 g/dl (3.5-5.0)
[2024-05-14 10:18] LABS: Alanine Aminotransferase 30 U/L (12-78); Alkaline Phosphatase 94 U/L (38-126); Aspartate Amino Transferase 23 U/L (14-36); Bilirubin,Indirect 0.4 mg/dL (0.0-0.9); Bilirubin,Total 0.4 mg/dl (0.2-1.3); Bilirubin,Unconjugated 0.5 mg/dL (0.0-1.1); Cholesterol 145 mg/dl (140-200); HDL Cholesterol 73 mg/dl (40-60); Total Protein,Serum 6.8 g/dl (6.3-8.2); Triglycerides 71 mg/dl (30-150); VLDL Cholesterol 14 mg/dL (0-40)
[2024-05-14 10:29] LABS: Direct LDL Cholesterol 55.79 mg/dL (100-129)
== END 2024-05-14 23:59 | disposition home or self-care (01) ==
LOC: LAB 09:15
PROVIDERS: PCP Family Medicine; Visit Provider Nurse Practitioner Family
DX: I11.9 Hypertensive heart disease without heart failure (principal); I25.118 Atherosclerotic heart disease of native coronary artery with other forms of angina pectoris; E78.49 Other hyperlipidemia; G47.33 Obstructive sleep apnea (adult) (pediatric); R06.09 Other forms of dyspnea; G47.34 Idiopathic sleep related nonobstructive alveolar hypoventilation
CPT/HCPCS: 36415; 80061; 80076

== ENCOUNTER 2024-10-01 09:10 | Outpatient (CLI) | payer BC, SELFPAY ==
[2024-10-01 10:03] LABS: Hematocrit 42.9 % (37.0-47.0); Hemoglobin 13.5 g/dL (12.2-16.2); Immature Granulocytes % 0.3 %; Mean Corpuscular HGB Conc 31.5 g/dL (31.8-35.4); Mean Corpuscular Hemoglobin 26.3 pg (27.0-31.2); Mean Corpuscular Volume 83.5 fl (81-99); Nucleated Red Blood Cells % 0 %; Platelet Count 230 K/mm3 (142-424); Red Blood Count 5.14 M/mm3 (4.20-5.40); Red Cell Distribution Width-SD 41.4 fL; White Blood Count 8.0 K/mm3 (4.8-10.8)
[2024-10-01 10:56] LABS: Alanine Aminotransferase 21 U/L (12-78); Albumin Level 4.3 g/dl (3.5-5.0); Alkaline Phosphatase 107 U/L (38-126); Anion Gap 14.5 mEq/L (5-15); Aspartate Amino Transferase 25 U/L (14-36); Bilirubin,Direct 0.2 mg/dl (0.0-0.4); Bilirubin,Indirect 0.3 mg/dL (0.0-0.9); Bilirubin,Total 0.5 mg/dl (0.2-1.3); Bilirubin,Unconjugated 0.3 mg/dL (0.0-1.1); Blood Urea Nitrogen 15 mg/dl (7-17); Calcium 9.8 mg/dl (8.4-10.2); Carbon Dioxide 28 mmol/L (22.0-30.0); Chloride 99 mmol/L (98-107); Cholesterol 149 mg/dl (140-200); Creatinine,Serum 0.90 mg/dl (0.52-1.04); Estimated Glomerular Filt Rate 63 ml/min (>60); GFR (African American) 77 ML/MIN (>60); Glucose 119 mg/dl (74-100); HDL Cholesterol 62 mg/dl (40-60); Magnesium 1.9 mg/dl (1.6-2.3); Potassium 4.5 mmoL/L (3.5-5.1); Sodium 137 mmol/L (136-145); Total Protein,Serum 7.1 g/dl (6.3-8.2); Triglycerides 59 mg/dl (30-150)
[2024-10-01 11:09] LABS: Free T4 (Free Thyroxine) 1.10 ng/dl (0.78-2.19)
[2024-10-01 11:26] LABS: Thyroid Stimulating Hormone 2.32 uIU/mL (0.465-4.68)
== END 2024-10-01 23:59 | disposition home or self-care (01) ==
LOC: LAB 09:10
PROVIDERS: PCP Family Medicine; Visit Provider Nurse Practitioner Family
DX: I25.10 Atherosclerotic heart disease of native coronary artery without angina pectoris (principal); I10 Essential (primary) hypertension
CPT/HCPCS: 36415; 80048; 80061; 80076; 83735; 84439; 84443; 85025

== ENCOUNTER 2024-10-15 07:04 | Outpatient (CLI) | payer BC, SELFPAY ==
--- NOTE | 2024-10-15 | CA_ITS ---
APPROVED REPORT Exam: Exercise Treadmill Technologist: Janice Person Ht: 5 ft 3 in Wt: 172 lbs BSA: 1.81 m2 Medical History Medications: aspirin, atorvastatin, vitamin D3, irbesartan, imdur, magnesium glycinate, metoprolol succinate ER, ticagrelor, galzin, omeprazole. Stress Test Details Test: Exercise stress testing was performed using a [place] protocol. HR Resting HR: 63 bpm Max Heart Rate (APMHR): 157.637117 bpm Max HR Achieved: 163 bpm Target HR (85% APMHR): 133.153095 bpm % of APMHR: 103.82 Recovery HR: 79 bpm BP Resting BP: 200.0/110.0 mmHg Max BP: 224.0/70.0 mmHg Recovery BP: 194.0/77.0 mmHg ECG Resting ECG: SR Clinical Highest Stage Achieved: II Stress ECG Conclusion Pt did not take BP meds this morning. Symptoms: Chest tightness & SOB with peak exercise. Test stopped due to leg fatigue. Arrhythmias/Ectopy: PAC in recovery. PVC in recovery. ST-T Changes: <1.5mm ST depression. Electronically signed by : Sharron Allen MD 10/15/2024 13:41:07
--- NOTE | 2024-10-15 07:30 | NM_ITS ---
APPROVED REPORT Exam: Nuclear Stress Test Indication: Chest pain, SOB, Fatigue, HTN, High cholesterol, CAD, Hx of MS Patient Location: Outpatient Stress Tech: Janice Michele [place] Tech:Karina Mcguire, ARRT, RT (R)(N) Ht: 5 ft 3 in Wt: 172 lbs Bra Size: 38DD HR: 65 bpm BP: 200/110 mmHg BSA: 1.81 m2 TID: 1.50 BMI: 30.4 History: Chest pain, SOB, Fatigue, HTN, High cholesterol, CAD, Hx of MS Procedure: Patient exercised on Ventura protocol 4:29 minutes and sec, resting heart rate 65 bpm, resting blood pressure 200/110 mmHg, with exercise maximum heart rate achived was 163 bpm which is 103 % of the maximum predicted heart rate and blood pressure was 224/70 mmHg. Test was stopped due to SOB. Patient denied any complaint of chest pain. Patient has Average exercise capacity, achieved 7.1 METs of workload on treadmill, the blood pressure response to exercise was Exaggerated. Cardiac Stress and Resting SPECT Images: Cardiac Stress and Resting SPECT images were obtained using technetium 99m Myoview 30.8 mCi stress and 10.16 mCi at rest. Resting and stress imaging in supine and prone positions demonstrate no evidence of fixed or reversible perfusion defects. There is increase in transient ischemic dilatation ratio (TID 1.50), which may be suggestive of possible multivessel disease or balanced ischemia. Gated imaging demonstrates normal global and regional LV systolic function. LVEF is calculated at 72%. Conclusion: No evidence of fixed or reversible perfusion defects. There is increase in transient ischemic dilatation ratio (TID 1.50), which may be suggestive of possible multivessel disease or balanced ischemia. Gated imaging demonstrates normal global and regional LV systolic function. LVEF is calculated at 72%. Of note, the patient had an exaggerated BP response to exercise. Further BP control is recommended. Electronically signed by : Sharron Allen MD 10/15/2024 13:40:38
[2024-10-15] MEDS: SODIUM CHLORIDE 0.9% 10ML SYR (RAD ONLY) 10 ML IV ×2 (09:21)
[2024-10-15] MEDS: ISOTOPE MYOVIEW (PER STUDY) 1 DOSE IV (09:21)
== END 2024-10-15 23:59 | disposition home or self-care (01) ==
LOC: RAD 07:05
PROVIDERS: PCP Family Medicine; Visit Provider Nurse Practitioner Family
DX: I49.1 Atrial premature depolarization (principal); I49.3 Ventricular premature depolarization; R94.31 Abnormal electrocardiogram [ECG] [EKG]; R94.39 Abnormal result of other cardiovascular function study; I25.10 Atherosclerotic heart disease of native coronary artery without angina pectoris; I10 Essential (primary) hypertension; E78.00 Pure hypercholesterolemia, unspecified; I25.2 Old myocardial infarction
CPT/HCPCS: 78452; 93016; 93017; 93018; A9502

== ENCOUNTER 2024-11-05 08:32 | Day surgery (SDC) | payer BC, SELFPAY ==
[2024-11-05] VITALS (12 sets, daily range): BP systolic 139–208; BP diastolic 69–108; PULSE 52–87; RESP 18–20; O2SAT 90–98; BMI 31.5
--- NOTE | 2024-11-05 07:00 | IR_ITS ---
APPROVED REPORT Patient Location: Outpatient PROCEDURES Left heart catheterization Left ventriculogram Selective coronary angiogram INDICATION Known multivessel coronary disease, Angina pectoris, Abnormal Myoview Informed consent was obtained prior to the procedure. COMPLICATIONS NONE Estimated Blood Loss: LESS THAN 10 ML TECHNIQUE One percent lidocaine used to anesthetize the right anterior aspect of the wrist. The right radial artery was accessed via the Seldinger technique. A long 25 cm 6 [place] sheath was placed in the right radial artery. 2.5 mg of Verapamil, 800 mcg of nitroglycerin, 1mg Lidocaine and 5000 U Heparin were given through the arterial sheath. The JL3 catheter was also used to perform left heart catheterization, left ventriculogram and selective coronary angiogram. At the end of the procedure the sheath was removed good hemostasis was achieved using Traclet band, patient was transferred to the postop holding area in stable condition. ANGIOGRAPHIC RESULTS The left main artery Normal The left anterior descending artery Has stents through the proximal and mid LAD which were all widely patent with mild concentric in-stent restenosis with excellent proximal distal transitioning The circumflex artery Large nondominant with stents in the proximal to mid segment which are widely patent with minimal in-stent restenosis and excellent distal and proximal transitioning The right coronary artery Dominant vessel with stents in the proximal to mid segment which are widely patent with minimal mid vessel 30% in-stent restenosis with excellent proximal distal transitioning The LUND ventriculogram reveals Normal 65% The left ventricular end-diastolic pressure 25 mmHg IMPRESSION Patent stents as described above Normal ejection fraction Elevated LVEDP which is likely etiology for transient ischemic dilatation PLAN 1. Treatment of HFpEF 2. Medical management for coronary disease 3. Risk factor modification Electronically signed by : Alpesh Townsend MD 11/05/2024 12:45:28
[2024-11-05 09:05] LABS: Chloride 102 mmol/L (98-107); Sodium 139 mmol/L (136-145)
[2024-11-05 09:06] LABS: Potassium 4.2 mmoL/L (3.5-5.1)
[2024-11-05 09:09] LABS: Anion Gap 12.2 mEq/L (5-15); Blood Urea Nitrogen 17 mg/dl (7-17); Calcium 9.5 mg/dl (8.4-10.2); Carbon Dioxide 29 mmol/L (22.0-30.0); Creatinine Clearance Estimated 73 mL/min (50-200); Creatinine,Serum 0.80 mg/dl (0.52-1.04); Estimated Glomerular Filt Rate 72 ml/min (>60); GFR (African American) 88 ML/MIN (>60); Glucose 125 mg/dl (74-100)
[2024-11-05 09:12] LABS: Hematocrit 41.6 % (37.0-47.0); Hemoglobin 13.1 g/dL (12.2-16.2); Immature Granulocytes % 0.4 %; Mean Corpuscular HGB Conc 31.5 g/dL (31.8-35.4); Mean Corpuscular Hemoglobin 26.2 pg (27.0-31.2); Mean Corpuscular Volume 83.2 fl (81-99); Nucleated Red Blood Cells % 0 %; Platelet Count 222 K/mm3 (142-424); Red Blood Count 5.00 M/mm3 (4.20-5.40); Red Cell Distribution Width-SD 42.4 fL; White Blood Count 10.0 K/mm3 (4.8-10.8)
[2024-11-05] MEDS: LIDOCAINE 1% 10ML MDV 10 ML IJ (12:13)
[2024-11-05] MEDS: HEPARIN 1,000 UNITS/ML 10ML VIAL (CATH LAB) 5000 UNIT IV (12:13)
[2024-11-05] MEDS: HEPARIN 1,000 UNITS/500ML NS (CATH LAB) 3000 UNIT IV (12:13)
[2024-11-05] MEDS: 0.9 % SODIUM CHLORIDE 500 ML 25 ML IV (12:13)
[2024-11-05] MEDS: NITROGLYCERIN 800MCG/8ML SYR (CATH LAB) 800 MCG IA (12:13)
[2024-11-05] MEDS: FENTANYL 100MCG/2ML VIAL 50 MCG IV (12:14)
[2024-11-05] MEDS: MIDAZOLAM HCL 1MG/ML 5ML VIAL 1 MG IV (12:14)
[2024-11-05] MEDS: VERAPAMIL 2.5MG/ML 2ML VIAL 2.5 MG IV (12:14)
== END 2024-11-05 15:38 | disposition home or self-care (01) ==
LOC: CATHLAB 08:32
PROVIDERS: PCP Family Medicine; Visit Provider Internal Medicine
PROC: 4A023N7 Measurement of Cardiac Sampling and Pressure, Left Heart, Percutaneous Approach (ICD-10-PCS; CPT 93452; principal; 2024-11-05 09:45)
DX: I25.118 Atherosclerotic heart disease of native coronary artery with other forms of angina pectoris (principal); T82.855A Stenosis of coronary artery stent, initial encounter; R93.1 Abnormal findings on diagnostic imaging of heart and coronary circulation; I10 Essential (primary) hypertension; E78.49 Other hyperlipidemia; I47.20 Ventricular tachycardia, unspecified; G47.33 Obstructive sleep apnea (adult) (pediatric); I25.2 Old myocardial infarction; Z87.891 Personal history of nicotine dependence; Z79.82 Long term (current) use of aspirin; Z79.899 Other long term (current) drug therapy; Z79.02 Long term (current) use of antithrombotics/antiplatelets; Z95.5 Presence of coronary angioplasty implant and graft; Z82.49 Family history of ischemic heart disease and other diseases of the circulatory system; Y84.8 Other medical procedures as the cause of abnormal reaction of the patient, or of later complication, without mention of misadventure at the time of the procedure
CPT/HCPCS: 80048; 85025; 93458; 99152; C1725; C1769; J1200; J1644; J3010; J7040

== ENCOUNTER 2024-11-18 11:10 | Outpatient (CLI) | payer BC, SELFPAY ==
[2024-11-18 13:48] LABS: Chloride 103 mmol/L (98-107); Potassium 4.9 mmoL/L (3.5-5.1); Sodium 139 mmol/L (136-145)
[2024-11-18 13:51] LABS: Anion Gap 10.9 mEq/L (5-15); Blood Urea Nitrogen 25 mg/dl (7-17); Carbon Dioxide 30 mmol/L (22.0-30.0); Creatinine,Serum 0.90 mg/dl (0.52-1.04); Estimated Glomerular Filt Rate 63 ml/min (>60); GFR (African American) 77 ML/MIN (>60)
[2024-11-18 13:52] LABS: Calcium 9.8 mg/dl (8.4-10.2); Glucose 120 mg/dl (74-100)
== END 2024-11-18 23:59 | disposition home or self-care (01) ==
LOC: LAB 11:11
PROVIDERS: PCP Family Medicine; Visit Provider Physician Assistant
DX: I25.10 Atherosclerotic heart disease of native coronary artery without angina pectoris (principal); I10 Essential (primary) hypertension
CPT/HCPCS: 36415; 80048